=== PATIENT | female | born 1950 | race Caucasian/White ===

== ENCOUNTER 2020-08-11 08:33 | Inpatient (IN) | payer OTHER ==
[~2020-08-11] VITALS: Ht 162.6 cm; Wt 80.2 kg
[2020-08-11 09:37] LABS: Basophils # (auto) 0.1 10 ^3/uL (0-0.2); Basophils % (auto) 1.1 % (0.0-2.0); Eosinophils # (auto) 0.3 10 ^3/uL (0-0.8); Monocytes # (auto) 0.9 10 ^3/uL (0-1.3); Nucleated Red Blood Cells % 0.1 %; Red Cell Distribution Width 13.3 % (11.8-14.3)
[2020-08-11 09:38] LABS: Eosinophils % (auto) 3.2 % (0.0-7.0); Hematocrit 36.2 % (36.0-46.0); Lymphocytes # (auto) 1.7 10 ^3/uL (0.4-5.4); Lymphocytes % (auto) 16.3 % (10.0-50.0); Mean Corpuscular Hemoglobin 31.3 pg (28.0-32.0); Mean Corpuscular Hgb Conc. 35.9 g/dL (32.0-36.0); Mean Corpuscular Volume 87.1 fL (80.0-100.0); Monocytes % (auto) 8.2 % (0.0-12.0); Neutrophils # (auto) 7.6 10 ^3/uL (1.6-8.6); Neutrophils % (auto) 71.2 % (37.0-80.0); Platelet Count (auto) 470 10^3/uL (140-450); Red Blood Cells 4.16 10^6/uL (4.0-5.20); White Blood Cell 10.6 10^3/uL (4.4-10.8)
[2020-08-11 09:53] LABS: INR 1.07 (0.9-1.15); Partial Thromboplastin Time 24.5 sec (23.0-31.2)
[2020-08-11 09:54] LABS: Albumin 4.1 g/dL (3.4-5.0); Calcium 9.2 mg/dL (8.5-10.1)
[2020-08-11 09:58] LABS: Bilirubin, Total 0.6 mg/dL (0.2-1.0); Total Protein 7.9 g/dL (6.4-8.2)
[2020-08-11 10:32] LABS: Urine Bacteria FEW /hpf (None Seen); Urine Blood Negative /uL (Negative); Urine Hyaline Cast FEW /lpf (0 - 2); Urine Mucus FEW (None Seen); Urine Specific Gravity 1.033 (1.001-1.035); Urine WBC 1 /hpf (0 - 5)
[2020-08-11] MEDS ORDERED: NITROGLYCERIN 0.4 MG SL TAB SL PRN ×2 (11:15→13:00)
[2020-08-11] MEDS ORDERED: MORPHINE SULF INJ 2 MG/ML SYRINGE 1ML IV PRN ×2 (11:15→13:00)
[2020-08-11] MEDS ORDERED: SODIUM CHLORIDE 0.9% 1,000 ML IV ONE ×2 (11:30)
[2020-08-11] MEDS ORDERED: IBUP800T26 PO (11:39)
[2020-08-11] MEDS ORDERED: BACL10TA PO (11:39)
[2020-08-11] MEDS ORDERED: NALO4SPR2 (11:39)
[2020-08-11] MEDS ORDERED: DULO60CA PO (11:39)
[2020-08-11] MEDS ORDERED: PRAV20TA3 PO (11:39)
[2020-08-11] MEDS ORDERED: TIZA4CAP7 PO (11:39)
[2020-08-11] MEDS ORDERED: AMLO-496 PO (11:39)
[2020-08-11] MEDS ORDERED: ALPR1TAB7 PO (11:39)
[2020-08-11] MEDS ORDERED: BENA40TA8 PO (11:39)
[2020-08-11] MEDS ORDERED: HYDR-4072 PO (11:39)
[2020-08-11] MEDS ORDERED: ATEN-60 PO (11:39)
[2020-08-11] MEDS ORDERED: ALEN35TA18 PO (11:39)
[2020-08-11] MEDS ORDERED: METF-929 PO (11:39)
[2020-08-11] MEDS: MORPHINE SULF INJ 2 MG/ML SYRINGE 1ML IV PRN ×2 (11:56→16:31)
[2020-08-11] MEDS ORDERED: ceFAZolin 1GM/50ML 50 ML IV ONE (13:00)
[2020-08-11] MEDS ORDERED: DOCUSATE SOD 100 MG CAP PO PRN (13:00)
[2020-08-11] MEDS ORDERED: DEXTROSE (50%) 50ML SYRG IV PRN (13:00)
[2020-08-11] MEDS ORDERED: ACETAMINOPHEN 325 MG TAB PO PRN (13:00)
[2020-08-11] MEDS ORDERED: BACLOFEN 10 MG TAB PO PRN (13:00)
[2020-08-11] MEDS ORDERED: ONDANSETRON HCL 4 MG/2 ML VIAL IV PRN (13:00)
[2020-08-11] MEDS ORDERED: ALUM & MAG HYDROX-SIMETH LIQ(MAALOX) 30 ML PO PRN (13:00)
[2020-08-11] MEDS ORDERED: LORazepam 0.5 MG TAB PO PRN (13:00)
[2020-08-11] MEDS ORDERED: LISINOPRIL 20 MG TAB PO ONE (13:00)
[2020-08-11] MEDS ORDERED: METOPROLOL SUCCINATE XL 50 MG TAB PO ONE (13:00)
[2020-08-11] MEDS ORDERED: hydrALAZINE HCL 20 MG/ML VL IV PRN (13:00)
[2020-08-11] MEDS: SODIUM CHLORIDE 0.9% 1,000 ML IV SCH (13:16)
[2020-08-11 14:55] LABS: Cholesterol 125 mg/dL (< 200)
[2020-08-11 15:03] LABS: HDL Cholesterol 54 mg/dL (40-59); LDL Cholesterol 54 mg/dL (< 100); Triglycerides 103 mg/dL (< 150)
[2020-08-11] MEDS: InsuLIN REG 1unit/0.01ml Soln (100units/ml) SC SCH ×2 (16:30→22:00)
[2020-08-11] MEDS: ACCU-CHEK COMFORT CURVE STRIP VI SCH ×2 (16:30→22:05)
[2020-08-11 16:55] LABS: Amphetamine Screen, Urine NEGATIVE (NEGATIVE); Barbiturate Scree,Urine NEGATIVE (NEGATIVE); Benzodiazephine Screen, Urine POSITIVE (NEGATIVE); Cannabinoid Screen, Urine NEGATIVE (NEGATIVE); Cocaine Screen, Urine NEGATIVE (NEGATIVE); Opiate Scree,Urine POSITIVE (NEGATIVE); Phencyclidine Screen, Urine NEGATIVE (NEGATIVE)
[2020-08-11] MEDS: HYDROmorphone HCL 2 MG/ML VL IV PRN (20:46)
[2020-08-11 21:50] VITALS: BP 146/73
[2020-08-11] MEDS: ATORVASTATIN 20 MG TAB PO SCH (21:55)
[2020-08-11] MEDS ORDERED: ceFAZolin 1GM/50ML 50 ML IV SCH (22:00)
[2020-08-11] MEDS: HYDROcodone-ACET 5/325MG TAB PO PRN (22:21)
[2020-08-12] MEDS: HYDROmorphone HCL 2 MG/ML VL IV PRN ×4 (00:49→09:38)
[2020-08-12] MEDS: HYDROcodone-ACET 5/325MG TAB PO PRN ×3 (02:35→22:49)
[2020-08-12 05:30] VITALS: BP 135/79
[2020-08-12] MEDS ORDERED: LIDOCAINE 1% HCL (LOCAL ANESTH.) INJ 20ML MDV ONE (06:51)
[2020-08-12] MEDS ORDERED: BUPIVACAINE 0.25% INJ 50ML VIAL ONE (06:52)
[2020-08-12] MEDS: ACCU-CHEK COMFORT CURVE STRIP VI SCH ×3 (07:00→17:00)
[2020-08-12] MEDS: InsuLIN REG 1unit/0.01ml Soln (100units/ml) SC SCH ×4 (07:00→22:00)
[2020-08-12] MEDS ORDERED: ceFAZolin 1GM/50ML 100 ML IV ONE (07:11)
[2020-08-12] MEDS ORDERED: DexAMETHasone SOD PHOS 10MG/1ML VIAL INJ ONE (07:37)
[2020-08-12] MEDS ORDERED: LIDOCAINE 2% (LOCAL ANESTH.) PF 5ml SDV ONE (07:37)
[2020-08-12] MEDS ORDERED: ONDANSETRON HCL 4 MG/2 ML VIAL ONE (07:37)
[2020-08-12] MEDS ORDERED: PROPOFOL 10 MG/ML 20 ML IV ONE (07:38)
[2020-08-12] MEDS ORDERED: fentaNYL CITRATE 100 MCG/2 ML VL ONE (07:39)
[2020-08-12] MEDS ORDERED: KETOROLAC TROMETH 60MG/2ML VIAL ONE (08:00)
[2020-08-12] MEDS ORDERED: hydrALAZINE HCL 20 MG/ML VL IV PRN (09:15)
[2020-08-12] MEDS: LACTATED RINGER'S 1,000 ML IV SCH (09:15)
[2020-08-12] MEDS: ceFAZolin 1GM/50ML 50 ML IV SCH ×2 (09:15→15:15)
[2020-08-12] MEDS ORDERED: LABETALOL HCL 5 MG/ML 4ML SYRINGE IV PRN (09:15)
[2020-08-12] MEDS ORDERED: HYDROmorphone HCL 2 MG/ML VL IV PRN (09:15)
[2020-08-12] MEDS ORDERED: ALENDRONATE SODIUM 10 MG TAB PO SCH (10:00)
[2020-08-12 10:26] VITALS: BP 170/86
[2020-08-12] MEDS: ASPirin 81 mg TAB PO SCH (10:53)
[2020-08-12] MEDS: DULoxetine HCL 30 MG CAP PO SCH (10:54)
[2020-08-12] MEDS: METOPROLOL SUCCINATE XL 50 MG TAB PO SCH (10:54)
[2020-08-12] MEDS: LISINOPRIL 20 MG TAB PO SCH (10:55)
[2020-08-12 12:02] LABS: Eosinophils # (auto) 0 10 ^3/uL (0-0.8); Hematocrit 38.8 % (36.0-46.0); Lymphocytes # (auto) 0.8 10 ^3/uL (0.4-5.4)
[2020-08-12 12:17] LABS: Albumin 3.9 g/dL (3.4-5.0); Calcium 8.4 mg/dL (8.5-10.1); Magnesium 2.1 mg/dL (1.6-2.6); Potassium 3.5 mmol/L (3.5-5.1)
[2020-08-12 12:19] LABS: Basophils # (auto) 0.1 10 ^3/uL (0-0.2); Basophils % (auto) 0.5 % (0.0-2.0); Eosinophils % (auto) 0.2 % (0.0-7.0); Hemoglobin 13.5 g/dL (12.2-16.2); Mean Corpuscular Hemoglobin 30.7 pg (28.0-32.0); Mean Corpuscular Hgb Conc. 34.8 g/dL (32.0-36.0); Mean Corpuscular Volume 88.2 fL (80.0-100.0); Monocytes # (auto) 0.2 10 ^3/uL (0-1.3); Monocytes % (auto) 1.5 % (0.0-12.0); Neutrophils # (auto) 11.9 10 ^3/uL (1.6-8.6); Neutrophils % (auto) 91.8 % (37.0-80.0); Platelet Count (auto) 487 10^3/uL (140-450); Red Cell Distribution Width 13.2 % (11.8-14.3)
[2020-08-12 12:21] LABS: BUN/Creatinine Ratio 14.3; Bilirubin, Total 0.4 mg/dL (0.2-1.0); Phosphorus 2.9 mg/dL (2.5-4.90)
[2020-08-12 12:34] LABS: INR 1.05 (0.9-1.15); Partial Thromboplastin Time 25.8 sec (23.0-31.2)
[2020-08-12] MEDS ORDERED: SODIUM CHLOR 0.9% PF (SALINE LOCK) 10ML VIAL/SYR IV SCH (14:00)
[2020-08-12] MEDS: SODIUM CHLORIDE 0.9% 1,000 ML IV SCH (14:37)
[2020-08-12 15:42] VITALS: BP 146/84
[2020-08-12 22:00] VITALS: BP 140/73
[2020-08-12] MEDS: ATORVASTATIN 20 MG TAB PO SCH (22:28)
[2020-08-13] MEDS: HYDROcodone-ACET 5/325MG TAB PO PRN ×5 (02:40→12:45)
[2020-08-13 05:00] VITALS: BP 134/86
[2020-08-13] MEDS: LACTATED RINGER'S 1,000 ML IV SCH (05:15)
[2020-08-13] MEDS: InsuLIN REG 1unit/0.01ml Soln (100units/ml) SC SCH ×2 (07:00→11:30)
[2020-08-13 07:36] VITALS: BP 155/76
[2020-08-13] MEDS ORDERED: ENOXAPARIN SOD 40 MG/0.4 ML SYRINGE SC SCH (10:00)
[2020-08-13] MEDS: ASPirin 81 mg TAB PO SCH (10:24)
[2020-08-13] MEDS: DULoxetine HCL 30 MG CAP PO SCH (10:24)
[2020-08-13] MEDS: METOPROLOL SUCCINATE XL 50 MG TAB PO SCH (10:25)
[2020-08-13] MEDS: LISINOPRIL 20 MG TAB PO SCH (10:26)
[2020-08-13] MEDS: HYDROmorphone HCL 2 MG/ML VL IV PRN (12:43)
[2020-08-13 16:08] VITALS: BP 128/70
[2020-08-13] MEDS ORDERED: ENO40SY SC (16:44)
== END 2020-08-13 19:36 | disposition home or self-care (01) | DRG 493 ==
LOC: ER 08:33 → OVERFLOW 11:19 → TELE-WESTW 21:16
PROVIDERS: ADMIT Emergency Medicine; ATTEND Emergency Medicine
PROC: 0MQR0ZZ Repair Left Ankle Bursa and Ligament, Open Approach (ICD-10-PCS; 2020-08-12)
PROC: 0QSH04Z Reposition Left Tibia with Internal Fixation Device, Open Approach (ICD-10-PCS; 2020-08-12)
PROC: BQ1HZZZ Fluoroscopy of Left Ankle (ICD-10-PCS; 2020-08-12)
PROC: 0QSK04Z Reposition Left Fibula with Internal Fixation Device, Open Approach (ICD-10-PCS; principal; 2020-08-12 07:40)
DX: S82.852A Displaced trimalleolar fracture of left lower leg, initial encounter for closed fracture (principal); E87.1 Hypo-osmolality and hyponatremia; F11.20 Opioid dependence, uncomplicated; E78.5 Hyperlipidemia, unspecified; E11.9 Type 2 diabetes mellitus without complications; F32.9 Major depressive disorder, single episode, unspecified; F41.9 Anxiety disorder, unspecified; G89.4 Chronic pain syndrome; W18.39XA Other fall on same level, initial encounter; Z20.822 Contact with and (suspected) exposure to COVID-19; I10 Essential (primary) hypertension; M19.90 Unspecified osteoarthritis, unspecified site; M81.0 Age-related osteoporosis without current pathological fracture; Z82.49 Family history of ischemic heart disease and other diseases of the circulatory system; Z83.3 Family history of diabetes mellitus; Z90.710 Acquired absence of both cervix and uterus; Y93.89 Activity, other specified; Y92.89 Other specified places as the place of occurrence of the external cause; Y99.8 Other external cause status
CPT/HCPCS: 36415; 51702; 71045; 73600; 76001; 80053; 80061; 80307; 81001; 82962; 83036; 83735; 84100; 84484; 85025; 85610; 85730; 86850; 86900; 86901; 87040; 87086; 87426; 93005; 96361; 96365; 96375; 97163; 99291; G0378; J0690; J1100; J1815; J1885; J2001; J2405; J2704; J3490

== ENCOUNTER 2021-07-28 18:08 | Emergency (ER) | payer BC, OTHER ==
[~2021-07-28] VITALS: Ht 165.1 cm; Wt 72.6 kg
[~2021-07-28 18:08] MED LIST: ALPR1TAB7 PO; AMLO-496 PO; ATEN-60 PO; BACL10TA PO; BENA40TA8 PO; DULO60CA PO; ENO40SY SC; HYDR-4072 PO; IBUP800T26 PO; METF-929 PO; PRAV20TA3 PO; TIZA4CAP7 PO
[2021-07-28 18:14] VITALS: BP 184/82
== END 2021-07-28 22:24 | disposition home or self-care (01) ==
LOC: EDBD 18:08 → EDUNIT# 18:08 → ER 18:12
DX: S92.414A Nondisplaced fracture of proximal phalanx of right great toe, initial encounter for closed fracture (principal); S93.602A Unspecified sprain of left foot, initial encounter; S63.501A Unspecified sprain of right wrist, initial encounter; S63.502A Unspecified sprain of left wrist, initial encounter; M47.816 Spondylosis without myelopathy or radiculopathy, lumbar region; I10 Essential (primary) hypertension; E11.9 Type 2 diabetes mellitus without complications; E78.5 Hyperlipidemia, unspecified; Z90.710 Acquired absence of both cervix and uterus; Z79.1 Long term (current) use of non-steroidal anti-inflammatories (NSAID); Z79.899 Other long term (current) drug therapy; W19.XXXA Unspecified fall, initial encounter; Y93.89 Activity, other specified; Y92.89 Other specified places as the place of occurrence of the external cause; Y99.8 Other external cause status
CPT/HCPCS: 72131; 73110; 73630

== ENCOUNTER 2022-08-12 10:07 | Day surgery (SDC) | payer BC ==
[~2022-08-12] VITALS: Ht 165.1 cm; Wt 72.6 kg
[~2022-08-12 10:07] MED LIST changes: -AMLO-496 PO; -BACL10TA PO; -DULO60CA PO; -ENO40SY SC; -HYDR-4072 PO; +METF-370 PO; -METF-929 PO; +NITR0.4S29 SL; -PRAV20TA3 PO; -TIZA4CAP7 PO
[2022-08-12] MEDS ORDERED: ANGIOMAX 250 MG VIAL IV ONE (11:27)
[2022-08-12] MEDS ORDERED: MIDAZOLAM HCL 2MG/2ML 2ml VIAL (1mg/ml) ONE (11:28)
[2022-08-12] MEDS ORDERED: fentaNYL CITRATE 100 MCG/2 ML VL ONE (11:28)
[2022-08-12] MEDS ORDERED: HEPARIN SODIUM (PORCINE) 5000 UNITS/ML 1ML VIAL ONE (11:28)
[2022-08-12] MEDS ORDERED: SODIUM CHL 0.9% 0 ML ONE (11:28)
[2022-08-12] MEDS ORDERED: IOHEXOL 350 MG/ML 100ML IJ ONE (11:29)
[2022-08-12] MEDS ORDERED: VERAPAMIL 2.5MG/ML INJ 2ML VIAL IV ONE (11:31)
== END 2022-08-12 14:58 | disposition home or self-care (01) ==
LOC: CATH 10:07
PROVIDERS: ATTEND Internal Medicine
DX: I25.118 Atherosclerotic heart disease of native coronary artery with other forms of angina pectoris (principal); R94.39 Abnormal result of other cardiovascular function study; F41.9 Anxiety disorder, unspecified; Z79.1 Long term (current) use of non-steroidal anti-inflammatories (NSAID); Z79.84 Long term (current) use of oral hypoglycemic drugs; Z82.49 Family history of ischemic heart disease and other diseases of the circulatory system; Z83.3 Family history of diabetes mellitus; Z20.822 Contact with and (suspected) exposure to COVID-19; I10 Essential (primary) hypertension
CPT/HCPCS: 93458; C1769; C1887; C1894; J1644; J2250; J3010; J7030; Q9967; U0003; 99152; 99153

== ENCOUNTER 2023-02-12 17:43 | Inpatient (IN) | payer BC ==
[~2023-02-12] VITALS: Ht 170.2 cm; Wt 84.1 kg
[~2023-02-12 17:43] MED LIST changes: +BENA40TA70 PO; -BENA40TA8 PO; +IBUP-1455 PO; -IBUP800T26 PO
[2023-02-12 18:42] VITALS: O2SAT 97
[2023-02-12 19:28] LABS: Basophils # (auto) 0 10 ^3/uL (0-0.2); Basophils % (auto) 0.3 % (0.0-2.0); Eosinophils # (auto) 0.1 10 ^3/uL (0-0.8); Eosinophils % (auto) 0.6 % (0.0-7.0); Hematocrit 41.7 % (36.0-46.0); Hemoglobin 13.7 g/dL (12.2-16.2); Lymphocytes # (auto) 1.2 10 ^3/uL (0.4-5.4); Lymphocytes % (auto) 9.4 % (10.0-50.0); Mean Corpuscular Hemoglobin 30.1 pg (28.0-32.0); Mean Corpuscular Hgb Conc. 32.9 g/dL (32.0-36.0); Mean Corpuscular Volume 91.3 fL (80.0-100.0); Monocytes # (auto) 0.9 10 ^3/uL (0-1.3); Neutrophils % (auto) 82.7 % (37.0-80.0); Red Blood Cells 4.57 10^6/uL (4.0-5.20); Red Cell Distribution Width 13.5 % (11.8-14.3); White Blood Cell 13.3 10^3/uL (4.4-10.8)
[2023-02-12 19:38] LABS: Urine Bacteria FEW /hpf (None Seen); Urine Blood Negative /uL (Negative); Urine Hyaline Cast MOD /lpf (0 - 2); Urine Mucus FEW (None Seen); Urine Specific Gravity 1.024 (1.001-1.035); Urine WBC 14 /hpf (0 - 5); Urine WBC Clumps PRESENT /hpf (None Seen)
[2023-02-12 19:48] LABS: INR 1.04 (0.9-1.15); Partial Thromboplastin Time 24.2 SEC (24.5-34.5)
[2023-02-12 19:50] LABS: Albumin 4.9 g/dL (3.4-5.0); BUN/Creatinine Ratio 12.7 (10.0-20.0); Calcium 9.6 mg/dL (8.5-10.1); Magnesium 2.6 mg/dL (1.6-2.6); Potassium 3.7 mmol/L (3.5-5.1)
[2023-02-12 19:50] LABS: Amphetamine Screen, Urine NEGATIVE (NEGATIVE); Barbiturate Scree,Urine NEGATIVE (NEGATIVE); Benzodiazephine Screen, Urine POSITIVE (NEGATIVE); Cannabinoid Screen, Urine NEGATIVE (NEGATIVE); Cocaine Screen, Urine NEGATIVE (NEGATIVE); Phencyclidine Screen, Urine NEGATIVE (NEGATIVE)
[2023-02-12 19:52] LABS: Bilirubin, Total 0.4 mg/dL (0.2-1.0); Total Protein 7.7 g/dL (6.4-8.2)
[2023-02-12 19:58] LABS: Opiate Scree,Urine POSITIVE (NEGATIVE)
[2023-02-12 21:04] VITALS: PULSE 81; RESP 13; O2SAT 97
[2023-02-12] MEDS ORDERED: cefTRIAXone 1GM/50ML D5W 50 ML IV ONE (22:15)
[2023-02-12] MEDS ORDERED: ONDANSETRON HCL 4 MG/2 ML VIAL IV PRN (22:15)
[2023-02-12] MEDS ORDERED: DEXTROSE (50%) 50ML SYRG IV PRN (22:15)
[2023-02-12] MEDS ORDERED: MORPHINE SULFATE INJ 2 MG/ml SYRG IV PRN (22:15)
[2023-02-12] MEDS ORDERED: NITROGLYCERIN 0.4 MG SL TAB SL PRN (22:15)
[2023-02-12] MEDS ORDERED: ACETAMINOPHEN 325 MG TAB PO PRN (22:15)
[2023-02-13 06:11] LABS: Basophils # (auto) 0 10 ^3/uL (0-0.2); Basophils % (auto) 0.3 % (0.0-2.0); Eosinophils # (auto) 0 10 ^3/uL (0-0.8); Eosinophils % (auto) 0.1 % (0.0-7.0); Hematocrit 41.3 % (36.0-46.0); Hemoglobin 14.2 g/dL (12.2-16.2); Lymphocytes # (auto) 1.3 10 ^3/uL (0.4-5.4); Lymphocytes % (auto) 11.3 % (10.0-50.0); Mean Corpuscular Hemoglobin 30.9 pg (28.0-32.0); Mean Corpuscular Hgb Conc. 34.3 g/dL (32.0-36.0); Mean Corpuscular Volume 90.1 fL (80.0-100.0); Monocytes # (auto) 0.8 10 ^3/uL (0-1.3); Monocytes % (auto) 6.5 % (0.0-12.0); Neutrophils # (auto) 9.4 10 ^3/uL (1.6-8.6); Neutrophils % (auto) 81.8 % (37.0-80.0); Nucleated Red Blood Cells % 0.1 %; Red Blood Cells 4.59 10^6/uL (4.0-5.20); Red Cell Distribution Width 13.3 % (11.8-14.3); White Blood Cell 11.5 10^3/uL (4.4-10.8)
[2023-02-13 06:29] LABS: Potassium 3.9 mmol/L (3.5-5.1)
[2023-02-13 06:36] LABS: Albumin 4.6 g/dL (3.4-5.0); BUN/Creatinine Ratio 23.4 (10.0-20.0); Bilirubin, Total 0.5 mg/dL (0.2-1.0); Total Protein 8.3 g/dL (6.4-8.2)
[2023-02-13] MEDS: ACCU-CHEK COMFORT CURVE STRIP VI SCH ×3 (06:40→16:51)
[2023-02-13] MEDS: InsuLIN REG 1unit/0.01ml Soln (100units/ml) SC SCH ×3 (06:40→17:13)
[2023-02-13 09:11] VITALS: PULSE 72; RESP 16; O2SAT 97
[2023-02-13] MEDS ORDERED: ATENOLOL 25 MG TAB PO SCH (10:00)
[2023-02-13] MEDS ORDERED: PANTOPRAZOLE 40 MG TAB PO SCH (10:00)
[2023-02-13 17:00] VITALS: TEMP 98.3
[2023-02-13] MEDS ORDERED: CEPH250C PO (17:37)
[2023-02-13 18:19] VITALS: BP 148/74; PULSE 66; RESP 16; O2SAT 99
[2023-02-13] MEDS ORDERED: cefTRIAXone 1GM/50ML D5W 50 ML IV SCH (22:00)
== END 2023-02-13 19:00 | disposition home or self-care (01) | DRG 92 ==
LOC: ER 17:43 → TELE 22:19
PROVIDERS: ADMIT Internal Medicine; ATTEND Internal Medicine
DX: G92.8 Other toxic encephalopathy (principal); N39.0 Urinary tract infection, site not specified; I10 Essential (primary) hypertension; E11.9 Type 2 diabetes mellitus without complications; E78.5 Hyperlipidemia, unspecified; F41.9 Anxiety disorder, unspecified; G89.4 Chronic pain syndrome; M19.90 Unspecified osteoarthritis, unspecified site; Z90.710 Acquired absence of both cervix and uterus; Z83.3 Family history of diabetes mellitus
CPT/HCPCS: 36415; 70450; 71045; 80053; 80307; 81001; 82962; 83735; 83880; 84484; 85025; 85610; 85730; 87086; 93005; 96365; 96366; 96372; 97163; G0378; J0696; J1815

== ENCOUNTER 2024-11-26 23:25 | Emergency (ER) | payer BC ==
[~2024-11-26] VITALS: Ht 165.1 cm; Wt 150.0 kg
[~2024-11-26 23:25] MED LIST changes: -BENA40TA70 PO; +BENA40TA71 PO; +CEPH250C PO
--- NOTE | 2024-11-27 00:06 | ED.PDOC ---
GI ASSESSMENT HPI Comments 74-year-old female who came to ER via EMS for nausea and vomiting. Patient states she woke up this morning, with diffuse abdominal pain, intermittent, aching, nonradiating, associated with bouts of nausea and vomiting. Noted also single episode of diarrhea. Denies any urinary symptoms Chief Complaint: Nausea/Vomiting Time Seen by MD: 23:59 Primary Care Provider: PRITI Reviewed Notes: Nurses Notes Allergies: Coded Allergies: NO KNOWN ALLERGIES (Unverified , 08/09/22) Home Meds Active Scripts Ondansetron Odt 4MG Tab (ZOFRAN PO) 4 Mg Tb, 4 MG PO TIDPRN PRN for 3 Days, #9 TAB ODT TAB-DISSOLVE IN MOUTH, THEN SWALLOW Prov:NBA TAYLOR MD 11/27/24 Levofloxacin Hemihydrate (LEVAQUIN 500 MG) 500 Mg Tab, 500 MG PO DAILY for 7 Days, #7 TAB Prov:NBA TAYLOR MD 11/27/24 Metronidazole (Flagyl) 500 Mg Tab, 500 MG PO BID for 7 Days, #14 TAB Prov:NBA TAYLOR MD 11/27/24 Cephalexin (KEFLEX CAPSULE) 250 Mg Cp, 500 MG PO Q6HR, #28 CAP Prov:ALEXANDRA REDDY MD 02/13/23 Reported Medications Nitroglycerin (NTROSTAT SUBLINGUAL) 0.4 Mg Sl, 0.4 MG SL PRN for CHEST PAIN, TAB *MAY REPEAT EVERY 5 MINUTES X 3 TOTAL IF NO RELIEF, INITIATE ANALGESIC THERAPY. NOTIFY PHYSICIAN *Do not crush. 08/09/22 Metformin Hydrochloride (Metformin Hcl) 500 Mg Tab, 500 MG PO IBID for ON HOLD 08/11/22 for 30 Days, MG 08/09/22 Benazepril Hcl (Benazepril Hcl) 40 Mg Tab, 40 MG PO DAILY, MG 08/11/20 Atenolol (Atenolol) 25 Mg Tab, 25 MG PO DAILY, MG 08/11/20 Alprazolam (Alprazolam) 1 Mg Tab, 1 TAB PO DAILY, #60 TAB 08/11/20 Ibuprofen Micronized (Ibuprofen) 800 Mg Tab, 800 MG PO TIDP, TAB 08/11/20 Discontinued Scripts Metronidazole (Flagyl) 500 Mg Tab, 1 TAB PO TID, #30 TAB Prov:NBA TAYLOR MD 11/27/24 Information Source: Patient, Emergency Med Personnel Mode of Arrival: EMS Timing: Hours Duration: Intermittent Prehospital treatment: None Quality: Aching Vomitus: Coffee Grounds Stool: Normal Severity: Moderate Recent: Iron Supplements Recent Hx of: Diabetes Pain Location: Diffuse, Epigastric Modifying Factors: Antacids Associated sign and symptoms: Nausea, Diarrhea, Constipation, Hematochezia Review of Systems REVIEW OF SYSTEMS: No fever, no chills, or fatigue HEENT: No sore throat, no earache, no congestion, no neck pain. Cardiac: No chest pain. No palpitations. Lungs: No shortness of breath, no cough. GI: (+) nausea, (+) vomiting, no diarrhea, no constipation, (+) abdominal pain : No dysuria, frequency, or urgency. No hematuria. Musculoskeletal: No joint pain , no joint swelling, no extremity edema. Skin: No rash, no itching. Neuro: No headache, no dizziness, no weakness Vital Signs Vital Signs Date Time Temp Pulse Resp B/P (MAP) Pulse Ox O2 Delivery O2 Flow Rate FiO2 11/27/24 05:45 85 18 165/72 (103) 99 11/27/24 04:35 Room Air* 0 21 11/27/24 03:15 98.6 98.6 Physical Exam General: Awake, alert and oriented. No acute distress. Skin: Skin in warm, dry and intact. Appropriate color for ethnicity. Nailbeds pink with no cyanosis. HEENT: The head is normocephalic and atraumatic. Conjunctivae are clear without exudates or hemorrhage. Sclera is non-icteric. EOM are intact. No signs of nystagmus. Eyelids are normal in appearance without swelling or lesions. Oral mucosa is pink and moist Neck: The neck is supple with normal range of motion. No JVD. Cardiac: Heart rate and rhythm are normal. No murmurs, gallops, or rubs are auscultated. Respiratory: No signs of respiratory distress. Lung sounds are clear in all lobes bilaterally without rales, rhonchi, or wheezes. Abdominal: Abdomen is soft, generally-tender without distention, guarding or rigidity. Bowel sounds are present and normoactive in all four quadrants. Extremities: Upper and lower extremities are atraumatic in appearance without deformity or edema. Neurological: The patient is awake, alert and oriented to person, place, and time with normal speech. Speech is clear. There is no facial asymmetry. Psychiatric: Appropriate mood and affect. Good judgement and insight. No visual or auditory hallucinations. Past Medical History PAST MEDICAL HISTORY: Arthritis, DM, High Lipids, HTN Surgical History: BTL, Hysterectomy [employer] OPERATIONS SPECIALIST History: No Pertinent [employer]IT[employer] OPERATIONS SPECIALIST History Family History Family History: Family hx of DM Social History Smoker: Non-Smoker Alcohol: Denies ETOH Use Drugs: Denies Drug Use Lives In: Home Was a procedure done? Was a procedure done?: No GI differential Dx Differential Diagnosis: AAA, Gastroenteritis, Dehydration, Electrolyte Imbalance, Food Poisoning, Other (Differential diagnoses considered include: Abdominal aortic aneurysm, MS, esophageal rupture, intestinal obstruction, mesenteric ischemia, perforated viscus or solid organ rupture, CHF with hepatomegaly, pneumonia, abscess, appendicitis, biliary disease, diverticulitis, gastritis, gastroenteritis, hepatitis, hernia, inflammatory bowel disease, pancreatitis, peptic ulcer disease, urinary tract infection, ureteral colic, constipation, GERD, irritable syndrome, abdominal wall pain, nonspecific abdominal pain, herpes zoster.) X-Ray, Labs, Meds, VS Vital Signs Date Time Temp Pulse Resp B/P (MAP) Pulse Ox O2 Delivery O2 Flow Rate FiO2 11/27/24 05:45 85 18 165/72 (103) 99 11/27/24 04:35 Room Air* 0 21 11/27/24 03:15 98.6 85 16 145/70 (95) 99 98.6 11/27/24 02:03 85 16 145/70 11/27/24 01:35 Room Air* 0 21 11/27/24 01:33 109 17 130/73 11/27/24 00:47 97.9 109 24 130/73 (92) 98 97.9 11/26/24 23:25 98.7 79 15 170/68 (102) 97 98.7 Lab Test 11/27/24 05:33 11/27/24 03:52 11/26/24 23:50 Range/Units Sodium Level 137 136 136-145 mmol/L Potassium Level 3.2 L 3.9 3.5-5.1 mmol/L Chloride Level 100 97 L 98-107 mmol/L Carbon Dioxide Level 18 L 17 L 20-31 mmol/L Anion Gap 19 H 22 H 5-15 Blood Urea Nitrogen 18 15 9-23 mg/dL Creatinine 1.16 H 1.04 H 0.550-1.02 mg/dL Glomerular Filtration Rate Calc 49 56 >90 mL/min BUN/Creatinine Ratio 15.5 14.4 10.0-20.0 Serum Glucose 182 H 202 H 74-106 mg/dL Calcium Level 10.4 10.7 H 8.7-10.4 mg/dL Blood Gas Specimen Type Arterial Blood Gas Sample Site Right radial Blood Gas Patient Temperature 37.0 Arterial Blood Date Drawn [id number] Arterial Blood pH 7.518 H 7.350-7.450 Arterial Blood Partial Pressure CO2 17.6 *L 32.0-45.0 mmHg Arterial Blood Partial Pressure O2 86.1 83.0-108.0 mmHg Arterial Blood HCO3 14.0 L 21.0-28.0 mmol/L Arterial Blood Oxygen Saturation 96.7 94.0-98.0 % Arterial Blood Base Excess -6.1 L -2.0-3.0 mmol/L Arterial Blood Oxyhemoglobin 95.9 94.0-98.0 % Arterial Blood Carboxyhemoglobin 0.2 L 0.5-1.5 % Arterial Blood Methemoglobin 0.6 0.0-1.5 % Jesús Test Yes Blood Gas Total Hemoglobin 14.00 12.0-16.0 g/dL Blood Gas Modality Room air FiO2 % 21.0 Blood Gas Critical Value Read Back Yes Blood Gas Notified Whom Dr. taylor Blood Gas Notified Time [id number] Blood Gas Notified By Schedule Maker gaston helm White Blood Count 18.1 H 4.4-10.8 10^3/uL Red Blood Count 4.84 4.0-5.20 10^6/uL Hemoglobin 14.5 12.2-16.2 g/dL Hematocrit 43.2 36.0-46.0 % Mean Corpuscular Volume 89.1 80.0-100.0 fL Mean Corpuscular Hemoglobin 30.0 28.0-32.0 pg Mean Corpuscular Hemoglobin Concent 33.7 32.0-36.0 g/dL Red Cell Distribution Width 13.8 11.8-14.3 % Platelet Count 435 140-450 10^3/uL Mean Platelet Volume 7.6 6.9-10.8 fL Neutrophils (%) (Auto) 91.0 H 37.0-80.0 % Lymphocytes (%) (Auto) 5.5 L 10.0-50.0 % Monocytes (%) (Auto) 3.3 0.0-12.0 % Eosinophils (%) (Auto) 0.0 0.0-7.0 % Basophils (%) (Auto) 0.2 0.0-2.0 % Neutrophils # (Auto) 16.5 H 1.6-8.6 10 ^3/uL Lymphocytes # (Auto) 1.0 0.4-5.4 10 ^3/uL Monocytes # (Auto) 0.6 0-1.3 10 ^3/uL Eosinophils # (Auto) 0 0-0.8 10 ^3/uL Basophils # (Auto) 0 0-0.2 10 ^3/uL Nucleated Red Blood Cells 0.0 % Lipase 54 H 12-53 U/L Current Medications Medications (Trade) Dose Ordered Sig/Jose Angel Route Start Time Stop Time Status Last Admin Sodium Chloride 500 ml @ 500 mls/hr Q1H ONCE IV 11/26/24 23:45 11/27/24 00:44 DC 11/27/24 01:30 Morphine Sulfate 2 mg ONCE ONCE IV 11/26/24 23:45 11/26/24 23:47 DC 11/27/24 01:33 Sodium Chloride 1,000 ml @ 1,000 mls/hr Q1H ONCE IV 11/27/24 01:30 11/27/24 02:29 DC 11/27/24 01:39 Ceftriaxone Sodium 50 ml @ 100 mls/hr ONCE ONCE IV 11/27/24 01:30 11/27/24 01:59 DC 11/27/24 01:43 Metronidazole 100 ml @ 100 mls/hr ONCE ONCE IV 11/27/24 01:30 11/27/24 02:29 DC 11/27/24 01:43 PATIENT: CARLTON JARVIS ACCT: [id number] UNIT: [id number] : 1950 LOC: ER ROOM / BED: / AGE / SEX: 74 / F ADM STATUS: REG ER SERVICE 2089 ORDERING PHYSICIAN: NBA TAYLOR MD PROCEDURE(s): ABPL - CT AB PEL WO CON-NO ORAL OR IV REASON: abdominal pain /n/v/d ORDER NUMBER(s): [id number], ACCESSION NUMBER(s): [id number] Exam: CT CT AB PEL WO CON-NO ORAL OR IV History: abdominal pain /n/v/d Comparison Study: None Technique: Multidetector spiral CT of the abdomen was performed from lung bases to pubic symphysis. Imaging was performed without IV contrast. Axial, coronal and sagittal multiplanar reformats were obtained from the axial data set by the technologist. Radiation Dose : 1. Abdomen/Pelvis: CTDIvol mGy, DLP mGy*cm. Findings: Evaluation of solid organs is limited due to lack of intravenous contrast use. Lung Bases: No abnormality demonstrated. Liver: Liver is normal in size. No focal lesions noted. Gallbladder and Biliary Tree: No abnormality demonstrated. Spleen: No abnormality demonstrated. Pancreas: No abnormality demonstrated. Adrenal Glands: No abnormality demonstrated. Kidneys: No abnormality demonstrated. Bladder: Grossly unremarkable for degree of distention. Bowel: Stomach appears grossly unremarkable. The duodenum is mildly dilated measuring measuring 3.3 cm with thickened wall. The more distal small bowel and the large bowel appear unremarkable. Appendix is not visualized; however, no secondary findings of acute appendicitis identified. Ascites: Absent Lymphadenopathy: No evidence of lymphadenopathy. Abdominal Wall and Mesentery: Unremarkable. Vasculature: Mild plaque in abdominal aorta and iliac arteries without aneurysmal dilatation. Pelvic Organs: Unremarkable Musculoskeletal: No bony lesions or fracture. IMPRESSION: Duodenum is mildly dilated measuring measuring 3.3 cm with thickened wall, may represent duodenitis. Radiation optimization: All CT scans at this facility use at least one of these dose optimization techniques: automated exposure control mA and/or kV adjustment per patient size (includes targeted exams where dose is matched to clinical indication) or iterative reconstruction. ATED BY: ELVIS JOHNSON MD DICTATED DATE/TIME: 11/27/2458 SIGNED BY: ELVIS JOHNSON MD SIGNED DATE/TIME: 11/27/2458 CC: Time of 1ST Reevaluation: 23:56 Reevaluation 1ST: Unchanged Patient Education/Counseling: Need For Follow Up Family Education/Counseling: No Family Present Departure 1 Departure Time of Disposition: :23 Impression: Primary Impression: Abdominal pain Additional Impressions: Hyperglycemia Leukocytosis Disposition: 01 HOME / SELF CARE / HOMELESS Condition: Stable Additional Instructions: ED DISCHARGE INSTRUCTIONS Instructions: Please read all instructions provided in this packet carefully. Although you have been discharged from the Emergency Department, this does not mean that you have a "clean bill of health". No definitive diagnosis for your symptoms has been made today. It is possible that you are in the process of developing a serious illness. This is why you must return to the ED without fail if any new or worsening symptoms (especially if your symptoms include chest pain, trouble breathing, abdominal pain, fever, headache, confusion, trouble seeing, or trouble walking) It is also very important that you see a primary care doctor within the next 1-3 days to follow up. If you are unable to get an appointment, return to the ED for re-evaluation. Abdominal Pain: Care Instructions Overview Abdominal pain has many possible causes. Some aren't serious and get better on their own in a few days. Others need more testing and treatment. If your pain continues or gets worse, you need to be rechecked and may need more tests to find out what is wrong. You may need surgery to correct the problem. Don't ignore new symptoms, such as fever, nausea and vomiting, urination problems, pain that gets worse, and dizziness. These may be signs of a more serious problem. If you are not getting better, you may need more tests or treatment. The doctor has checked you carefully, but problems can develop later. If you notice any problems or new symptoms, get medical treatment right away. Follow-up care is a pepe part of your treatment and safety. Be sure to make and go to all appointments, and call your doctor if you are having problems. It's also a good idea to know your test results and keep a list of the medicines you take. How can you care for yourself at home? Rest until you feel better. To prevent dehydration, drink plenty of fluids. Choose water and other clear liquids until you feel better. If you have kidney, heart, or liver disease and have to limit fluids, talk with your doctor before you increase the amount of fluids you drink. When you feel like eating, start with small amounts. Do not have alcohol, caffeine, or spicy, hot, or high-fat foods for a day or two. Avoid anti-inflammatory medicines such as aspirin, ibuprofen (Advil, Motrin), and naproxen (Aleve). These can cause stomach upset. Talk to your doctor if you take daily aspirin for another health problem. When should you call for help? Call 911 anytime you think you may need emergency care. For example, call if: You passed out (lost consciousness). You pass maroon or very bloody stools. You vomit blood or what looks like coffee grounds. You have severe belly pain. Call your doctor now or seek immediate medical care if: Your pain gets worse, especially if it becomes focused in one area of your belly. You have a new or higher fever. Your stools are black and look like tar, or they have streaks of blood. You have unexpected vaginal bleeding. You have symptoms of a urinary tract infection. These may include: Pain when you urinate. Urinating more often than usual. Blood in your urine. You are dizzy or lightheaded, or you feel like you may faint. Watch closely for changes in your health, and be sure to contact your doctor if: You are not getting better as expected. Credits for Abdominal Pain: Care Instructions Current as of: May 08, 2023 Author: [employer] Staff Clinical Review Board [employer] education is reviewed by a team that includes physicians, nurses, advanced practitioners, registered dieticians, and other healthcare professionals. e-Prescriptions Ondansetron Odt 4MG Tab (ZOFRAN PO) 4 Mg Tb 4 MG PO TIDPRN PRN for 3 Days, #9 TAB ODT TAB-DISSOLVE IN MOUTH, THEN SWALLOW Prov: NBA TAYLOR MD 11/27/24 Levofloxacin Hemihydrate (LEVAQUIN 500 MG) 500 Mg Tab 500 MG PO DAILY for 7 Days, #7 TAB Prov: NBA TAYLOR MD 11/27/24 Metronidazole (Flagyl) 500 Mg Tab 500 MG PO BID for 7 Days, #14 TAB Prov: NBA TAYLOR MD 11/27/24 Comments Discussed with Ileana Rob NP request for admission for nausea, vomiting, diarrhea, abdominal pain, hyperglycemia, leukocytosis, possible duodenitis, met abolic alkalosis. She evaluated the patient in the emergency department. At this time her recommendation is discharge home with oral antibiotics with outpatient follow up. Patient is reporting her pain is improved. Abdominal exam is benign. Advised p rompt follow up with primary care provider for re-evaluation and return to the emergency department with any new, worsening or concerning symptoms Critical Care Note Critical Care Time?: No Stability Stability form required: No Heart Score Heart Score: Heart Score Response (Comments) Value History N/A 0 EKG N/A 0 Age N/A 0 Risk Factors N/A 0 Troponin N/A 0 Total 0 I personally scribed for NBA TAYLOR MD ([email or web address]) on 11/27/24 at 00:06. Electronically submitted by Ross Schmidt ([employer]). I personally scribed for NBA TAYLOR MD ([email or web address]) on 11/27/24 at 00:08. Electronically submitted by Ross Schmidt ([employer]). I personally scribed for NBA TAYLOR MD ([email or web address]) on 11/27/24 at 01:34. Electronically submitted by Ross Schmidt ([email or web address]). I personally scribed for NBA TAYLOR MD ([email or web address]) on 11/27/24 at 05:19. Electronically submitted by Ross Schmidt ([employer]). NBA TAYLOR MD November 27, 2024 00:06
[2024-11-27 00:10] LABS: Basophils # (auto) 0 10 ^3/uL (0-0.2); Basophils % (auto) 0.2 % (0.0-2.0); Eosinophils # (auto) 0 10 ^3/uL (0-0.8); Hematocrit 43.2 % (36.0-46.0); Hemoglobin 14.5 g/dL (12.2-16.2); Lymphocytes % (auto) 5.5 % (10.0-50.0); Mean Corpuscular Hgb Conc. 33.7 g/dL (32.0-36.0); Mean Corpuscular Volume 89.1 fL (80.0-100.0); Monocytes # (auto) 0.6 10 ^3/uL (0-1.3); Monocytes % (auto) 3.3 % (0.0-12.0); Neutrophils # (auto) 16.5 10 ^3/uL (1.6-8.6); Platelet Count (auto) 435 10^3/uL (140-450); Red Blood Cells 4.84 10^6/uL (4.0-5.20); Red Cell Distribution Width 13.8 % (11.8-14.3); White Blood Cell 18.1 10^3/uL (4.4-10.8)
[2024-11-27 00:13] LABS: Potassium 3.9 mmol/L (3.5-5.1)
[2024-11-27 00:14] LABS: Anion Gap 22 (5-15)
[2024-11-27 00:16] LABS: Calcium 10.7 mg/dL (8.7-10.4); Carbon Dioxide 17 mmol/L (20-31); Chloride 97 mmol/L (98-107); Sodium 136 mmol/L (136-145)
[2024-11-27 00:19] LABS: BUN/Creatinine Ratio 14.4 (10.0-20.0); Blood Urea Nitrogen 15 mg/dL (9-23)
[2024-11-27 00:29] LABS: Glucose 202 mg/dL (74-106); Lipase 54 U/L (12-53)
--- NOTE | 2024-11-27 01:02 | DVH ---
Exam: CT CT AB PEL WO CON-NO ORAL OR IV History: abdominal pain /n/v/d Comparison Study: None Technique: Multidetector spiral CT of the abdomen was performed from lung bases to pubic symphysis. Imaging was performed without IV contrast. Axial, coronal and sagittal multiplanar reformats were ob tained from the axial data set by the technologist. Radiation Dose : 1. Abdomen/Pelvis: CTDIvol mGy, DLP mGy*cm. Findings: Evaluation of solid organs is limited due to lack of intravenous contrast use. Lung Bases: No abnormality demonstrated. Liver: Liver is normal in size. No focal lesions noted. Gallbladder and Biliary Tree: No abnormality demonstrated. Spleen: No abnormality demonstrated. Pancreas: No abnormality demonstrated. Adrenal Glands: No abnormality demonstrated. Kidneys: No abnormality demonstrated. Bladder: Grossly unremarkable for degree of distention. Bowel: Stomach appears grossly unremarkable. The duodenum is mildly dilated measuring measuring 3.3 c m with thickened wall. The more distal small bowel and the large bowel appear unremarkable. Appendix is not visualized; however, no secondary findings of acute appendicitis identified. Ascites: Absent Lymphadenopathy: No evidence of lymphadenopathy. Abdominal Wall and Mesentery: Unremarkable. Vasculature: Mild plaque in abdominal aorta and iliac arteries without aneurysmal dilatation. Pelvic Organs: Unremarkable Musculoskeletal: No bony lesions or fracture. IMPRESSION: Duodenum is mildly dilated measuring measuring 3.3 cm with thickened wall, may represent duodenitis. Radiation optimization: All CT scans at this facility use at least one of these dose optimization [id number] hniques: automated exposure control mA and/or kV adjustment per patient size (includes targeted exam s where dose is matched to clinical indication) or iterative reconstruction.
[2024-11-27] MEDS: ACETAMINOPHEN 500 MG TAB or CAP PO ONE (01:30)
[2024-11-27] MEDS: SODIUM CHLORIDE 0.9% 500 ML IV ONE (01:30)
[2024-11-27] MEDS: MORPHINE SULFATE INJ 2 MG/ml SYRG IV ONE (01:33)
[2024-11-27] MEDS: SODIUM CHLORIDE 0.9% 1,000 ML IV ONE (01:39)
[2024-11-27] MEDS: metroNIDAZOLE 500MG/100ML 100 ML IV ONE (01:43)
[2024-11-27] MEDS: cefTRIAXone 1GM/50ML D5W 50 ML IV ONE (01:43)
[2024-11-27 03:15] VITALS: TEMP 98.6
[2024-11-27 04:00] LABS: Base Excess -6.1 mmol/L (-2.0-3.0)
[2024-11-27] MEDS ORDERED: LEVO500T91 PO (05:26)
[2024-11-27] MEDS ORDERED: ZOFR4T PO (05:26)
[2024-11-27] MEDS ORDERED: METR-344 PO ×2 (05:26)
[2024-11-27 05:45] VITALS: BP 165/72; PULSE 85; RESP 18; O2SAT 99
[2024-11-27 05:51] LABS: Chloride 100 mmol/L (98-107); Sodium 137 mmol/L (136-145)
[2024-11-27 05:52] LABS: Anion Gap 19 (5-15)
[2024-11-27 05:57] LABS: BUN/Creatinine Ratio 15.5 (10.0-20.0); Blood Urea Nitrogen 18 mg/dL (9-23)
[2024-11-27 06:06] LABS: Calcium 10.4 mg/dL (8.7-10.4); Carbon Dioxide 18 mmol/L (20-31); Glucose 182 mg/dL (74-106); Potassium 3.2 mmol/L (3.5-5.1)
== END 2024-11-27 07:14 | disposition home or self-care (01) ==
LOC: EDBD 23:25 → EDUNIT# 23:25 → ER 23:25
DX: D72.829 Elevated white blood cell count, unspecified (principal); R10.84 Generalized abdominal pain; R19.7 Diarrhea, unspecified; R11.2 Nausea with vomiting, unspecified; I10 Essential (primary) hypertension; M19.90 Unspecified osteoarthritis, unspecified site; E78.5 Hyperlipidemia, unspecified; E11.65 Type 2 diabetes mellitus with hyperglycemia; Z90.710 Acquired absence of both cervix and uterus; Z98.51 Tubal ligation status
CPT/HCPCS: 36415; 36600; 74176; 80048; 82805; 83690; 85025; 96365; 96368; 96375; 99285; J0696; J2270; J3490

== ENCOUNTER 2024-12-04 21:24 | Inpatient (IN) | payer BC ==
[~2024-12-04] VITALS: Ht 162.6 cm; Wt 81.8 kg
[~2024-12-04 21:24] MED LIST changes: +LEVO500T91 PO; +METR-344 PO; +ZOFR4T PO
[2024-12-04 22:00] VITALS: PULSE 78; O2SAT 96
[2024-12-04 22:01] LABS: Basophils # (auto) 0 10 ^3/uL (0-0.2); Basophils % (auto) 0.6 % (0.0-2.0); Eosinophils # (auto) 0.2 10 ^3/uL (0-0.8); Eosinophils % (auto) 2.5 % (0.0-7.0); Hematocrit 39.1 % (36.0-46.0); Hemoglobin 13.3 g/dL (12.2-16.2); Lymphocytes # (auto) 0.8 10 ^3/uL (0.4-5.4); Lymphocytes % (auto) 10.7 % (10.0-50.0); Mean Corpuscular Volume 88.2 fL (80.0-100.0); Monocytes # (auto) 1.2 10 ^3/uL (0-1.3); Monocytes % (auto) 15.9 % (0.0-12.0); Neutrophils # (auto) 5.5 10 ^3/uL (1.6-8.6); Neutrophils % (auto) 70.3 % (37.0-80.0); Nucleated Red Blood Cells % 0.1 %; Platelet Count (auto) 296 10^3/uL (140-450); Red Blood Cells 4.43 10^6/uL (4.0-5.20); Red Cell Distribution Width 14.3 % (11.8-14.3); White Blood Cell 7.8 10^3/uL (4.4-10.8)
[2024-12-04] MEDS: ONDANSETRON HCL 4 MG/2 ML VIAL IV ONE (22:01)
[2024-12-04] MEDS: MORPHINE SULFATE 4 MG/ML SYR/VIAL IV ONE (22:01)
[2024-12-04] MEDS: CEFEPIME 1GM/ 50ML 50 ML IV ONE (22:01)
[2024-12-04] MEDS: SODIUM CHLORIDE 0.9% 2,000 ML IV ONE (22:02)
[2024-12-04 22:16] LABS: Alanine Aminotransferase 15 U/L (7-40); Alkaline Phosphatase 56 U/L (46-116); Anion Gap 18 (5-15); Aspartate Aminotransferase 19 U/L (13-40); BUN/Creatinine Ratio 8.9 (10.0-20.0); Blood Urea Nitrogen 10 mg/dL (9-23); Calcium 9.4 mg/dL (8.7-10.4); Carbon Dioxide 20 mmol/L (20-31); Chloride 101 mmol/L (98-107); Lipase 52 U/L (12-53); Sodium 139 mmol/L (136-145); Total Protein 7.1 g/dL (5.7-8.2)
[2024-12-04 22:17] LABS: Albumin 4.9 g/dL (3.2-4.8); Bilirubin, Total 0.4 mg/dL (0.2-1.0); Glucose 122 mg/dL (74-106); Lactic Acid w/Reflex 3.8 mmol/L (0.4-2.0); Potassium 3.2 mmol/L (3.5-5.1)
[2024-12-04] MEDS: SODIUM CHLORIDE 0.9% 1,000 ML IV ONE (22:30)
--- NOTE | 2024-12-04 22:37 | ED.PDOC ---
GI ASSESSMENT HPI Comments 74-year-old female with a history of hypertension, diabetes, dyslipidemia and osteoarthritis brought in by EMS from home complaining of persistent nausea, vomiting and diarrhea since 11/26/2024. Patient was seen here on 11/26/2024 for the same symptoms. Workup then showed leukocytosis, and CT showed possible duodenitis. Patient was discharged from the ED on Zofran, Levaquin and Flagyl. Patient states she has not been able to keep the medication down without vomiting since being discharged. She also has persistent mid abdominal pain. She denies any fever or dysuria. Chief Complaint: Nausea/Vomiting Time Seen by MD: 21:27 Primary Care Provider: PRITI Reviewed Notes: Nurses Notes, Engineering Manager Electronics Notes Allergies: Coded Allergies: NO KNOWN ALLERGIES (Unverified , 08/09/22) Home Meds Active Scripts Ondansetron Odt 4MG Tab (ZOFRAN PO) 4 Mg Tb, 4 MG PO TIDPRN PRN for 3 Days, #9 TAB ODT TAB-DISSOLVE IN MOUTH, THEN SWALLOW Prov:NBA TAYLOR MD 11/27/24 Levofloxacin Hemihydrate (LEVAQUIN 500 MG) 500 Mg Tab, 500 MG PO DAILY for 7 Days, #7 TAB Prov:NBA TAYLOR MD 11/27/24 Metronidazole (Flagyl) 500 Mg Tab, 500 MG PO BID for 7 Days, #14 TAB Prov:NBA TAYLOR MD 11/27/24 Cephalexin (KEFLEX CAPSULE) 250 Mg Cp, 500 MG PO Q6HR, #28 CAP Prov:ALEXANDRA REDDY MD 02/13/23 Reported Medications Nitroglycerin (NTROSTAT SUBLINGUAL) 0.4 Mg Sl, 0.4 MG SL PRN for CHEST PAIN, TAB *MAY REPEAT EVERY 5 MINUTES X 3 TOTAL IF NO RELIEF, INITIATE ANALGESIC THERAPY. NOTIFY PHYSICIAN *Do not crush. 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 Dry mucous membranes.) Neck: Full Range of Motion, Normal Inspection Respiratory: Lungs Clear, No Accessory Muscle Use, No Respiratory Distress, Normal Breath Sounds Cardiovascular: No Edema, No JVD, Regular Rate/Rhythm Breast Exam: Deferred Gastrointestinal: Soft, Tenderness (Generalized upper and mid abdominal tenderness to palpation. Nontender to percussion. No rebound or guarding.) Genitalia: Deferred Pelvic: Deferred Rectal: Deferred Extremities: Normal inspection, Normal range of motion, Non-tender, No pedal edema Neurologic: Alert (Oriented x4), Normal Affect, Normal Mood, Other (Moves all extremities. Light touch sensation grossly intact.) Cerebellar Function: NOT DONE Reflexes: NOT DONE Skin: Dry, Pallor, Warm Lymphatic: NOT DONE EKG EKG : Comments Sinus rhythm, rate 82, normal AL interval, QRS and QTC prolonged, normal axis, IVCD, possible atypical left bundle-branch block, nonspecific T change. Was a procedure done? Was a procedure done?: No GI differential Dx Differential Diagnosis: Diverticular disease, Gastritis/PUD, Gastroenteritis, Inflammatory BD, Pancreatitis, UTI, Dehydration, Diabetes/ DKA, Electrolyte Imbalance, Food Poisoning, Bacterial, Viral, Impaction, Renal Failure, Ischemic Bowel, Stress Ulcer Other Differential Diagnosis Sepsis, duodenitis, among others X-Ray, Labs, Meds, VS Vital Signs Date Time Temp Pulse Resp B/P (MAP) Pulse Ox O2 Delivery O2 Flow Rate FiO2 12/04/24 22:31 77 20 126/77 12/04/24 22:01 76 12 139/67 12/04/24 22:00 78 96 Room Air* 0 21 12/04/24 21:42 98.3 78 15 138/59 (85) 98 98.3 12/04/24 21:34 98.2 76 14 112/75 (87) 98 98.2 12/04/24 21:25 82 Lab Test 12/04/24 22:35 12/04/24 21:40 Range/Units Troponin I High Sensitivity < 3 L 3 L </=34 ng/L White Blood Count 7.8 4.4-10.8 10^3/uL Red Blood Count 4.43 4.0-5.20 10^6/uL Hemoglobin 13.3 12.2-16.2 g/dL Hematocrit 39.1 36.0-46.0 % Mean Corpuscular Volume 88.2 80.0-100.0 fL Mean Corpuscular Hemoglobin 30.0 28.0-32.0 pg Mean Corpuscular Hemoglobin Concent 34.0 32.0-36.0 g/dL Red Cell Distribution Width 14.3 11.8-14.3 % Platelet Count 296 140-450 10^3/uL Mean Platelet Volume 7.6 6.9-10.8 fL Neutrophils (%) (Auto) 70.3 37.0-80.0 % Lymphocytes (%) (Auto) 10.7 10.0-50.0 % Monocytes (%) (Auto) 15.9 H 0.0-12.0 % Eosinophils (%) (Auto) 2.5 0.0-7.0 % Basophils (%) (Auto) 0.6 0.0-2.0 % Neutrophils # (Auto) 5.5 1.6-8.6 10 ^3/uL Lymphocytes # (Auto) 0.8 0.4-5.4 10 ^3/uL Monocytes # (Auto) 1.2 0-1.3 10 ^3/uL Eosinophils # (Auto) 0.2 0-0.8 10 ^3/uL Basophils # (Auto) 0 0-0.2 10 ^3/uL Nucleated Red Blood Cells 0.1 % Sodium Level 139 136-145 mmol/L Potassium Level 3.2 L 3.5-5.1 mmol/L Chloride Level 101 98-107 mmol/L Carbon Dioxide Level 20 20-31 mmol/L Anion Gap 18 H 5-15 Blood Urea Nitrogen 10 9-23 mg/dL Creatinine 1.12 H 0.550-1.02 mg/dL Glomerular Filtration Rate Calc 52 >90 mL/min BUN/Creatinine Ratio 8.9 L 10.0-20.0 Serum Glucose 122 H 74-106 mg/dL Lactic Acid Level 3.8 *H 0.4-2.0 mmol/L Calcium Level 9.4 8.7-10.4 mg/dL Total Bilirubin 0.4 0.2-1.0 mg/dL Aspartate Amino Transferase (AST) 19 13-40 U/L Alanine Aminotransferase (ALT) 15 7-40 U/L Alkaline Phosphatase 56 46-116 U/L B-Type Natriuretic Peptide 17.05 0-100 pg/mL Total Protein 7.1 5.7-8.2 g/dL Albumin 4.9 H 3.2-4.8 g/dL Lipase 52 12-53 U/L Current Medications Medications (Trade) Dose Ordered Sig/Jose Angel Route Start Time Stop Time Status Last Admin Morphine Sulfate 4 mg ONCE ONCE IV 12/04/24 21:45 12/04/24 21:46 DC 12/04/24 22:01 Ondansetron HCl (Zofran) 4 mg ONCE ONCE IV 12/04/24 21:45 12/04/24 21:46 DC 12/04/24 22:01 Sodium Chloride 2,000 ml @ 1,000 mls/hr Q2H ONCE IV 12/04/24 21:45 12/04/24 23:44 DC 12/04/24 22:02 Cefepime HCl 50 ml @ 12.5 mls/hr ONCE ONCE IV 12/04/24 21:45 12/05/24 01:44 DC 12/04/24 22:01 Linezolid 300 ml @ 150 mls/hr O ONCE IV 12/04/24 22:30 12/05/24 00:29 DC 12/04/24 22:46 Potassium Bicarbonate (Klor-Con/Ef) 50 meq ONCE ONCE PO 12/04/24 22:30 12/04/24 22:31 DC 12/04/24 22:38 PROCEDURE(s): ABPL - CT AB PEL WO CON-NO ORAL OR IV REASON: abd pain n/v/d ORDER NUMBER(s): [id number], ACCESSION NUMBER(s): [id number] CT SCAN ABDOMEN AND PELVIS WITHOUT CONTRAST CLINICAL HISTORY: abd pain n/v/d TECHNIQUE: Helical axial images are obtained from the lung bases through the pelvis without oral contrast. No intravenous contrast was administered. Coronal and sagittal reformatted images were generated from thin section reconstructions. One or more of the following radiation dose reduction techniques were used for this examination: automated exposure control, adjustment of the mA and/or kV according to patient size, use of iterative reconstruction technique. COMPARISON: CT CT AB PEL WO CON-NO ORAL OR IV on DOS: 11/27/24 FINDINGS: LOWER THORAX: Mild scattered atelectasis/ scarring in the imaged lung bases. Coronary artery calcifications. ABDOMEN AND PELVIS: Evaluation of visceral and vascular structures is limited due to lack of contrast administration. As visualized, the unenhanced liver, spleen, pancreas and adrenals appear grossly unremarkable. No sizable, radiopaque cholelithiasis or biliary ductal d ilatation. No hydroureteronephrosis or sizable, obstructing urinary tract calculi identified. Aortoiliac atherosclerotic calcifications. No evidence of abdominal aortic aneurysm. Thickening versus underdistention of the stomach. Question mild thickening of the duodenum again noted. No evidence of small-bowel obstruction. Normal caliber appendix. A few scattered colonic diverticuli. No CT evidence of diverticulitis. No free intraperitoneal air or fluid identified. No sizable bladder calculus. No destructive osseous lesions identified. Degenerative changes at L5-S1. IMPRESSION: Thickening versus underdistention of the stomach. Mild apparent thickening of the duodenum also again noted. Findings are relatively nonspecific but may reflect gastritis/gastroduodenitis. Please correlate clinically. Other relatively chronic appearing findings as above. X-Ray, Labs, Meds, VS Comment 74-year-old female with a history of hypertension, diabetes, dyslipidemia and osteoarthritis brought in by EMS with persistent nausea, vomiting, diarrhea and abdominal pain since 11/26/2024 Vitals unremarkable Exam remarkable for dry mucous membranes, pallor, mid abdominal and upper abdominal tenderness to palpation Rhythm strip independently interpreted by me: Sinus rhythm, rate 82, no ectopy. CT abdomen and pelvis IMPRESSION: Thickening versus underdistention of the stomach. Mild apparent thickening of the duodenum also again noted. Findings are relatively nonspecific but may reflect gastritis/gastroduodenitis. Please correlate clinically. Other relatively chronic appearing findings as above. CBC unremarkable, CMP remarkable for potassium 3.2, creatinine 1.12, lipase normal, BNP and troponin negative, lactic 3.8 Patient treated with the following in the ED: 2 L 0.9 normal saline IV bolus, morphine 4 mg IV, Zofran 4 mg IV, effervescent potassium 50 mEq p.o., cefepime 1 g IV, Zyvox 600 mg IV On re-evaluation, patient states pain and nausea have improved. Vitals were stable. Plan is to admit the patient for IV antibiotics, pain and emesis control, possible GI evaluation Case discussed with PHILIP Rob, who will admit the patient. Time of 1ST Reevaluation: 22:36 Reevaluation 1ST: Improved Patient Education/Counseling: Diagnosis, Treatment, Need For Follow Up Family Education/Counseling: No Family Present Sepsis Sepsis Reasesment Focused Exam Sepsis focused exam: focus exam completed (Vitals stable, capillary refill less than 2 seconds, symptoms improving), time: (2235) Departure 1 Departure Time of Disposition: 22:36 Impression: Primary Impression: Nausea vomiting and diarrhea Additional Impressions: Sepsis Qualified Codes: A41.9 - Sepsis, unspecified organism Acute kidney injury Hypokalemia Gastroduodenitis Disposition: ADMITTED INPATIENT Admit to: Tele Condition: Guarded Critical Care Note Critical Care Time?: Yes (45 min-critical care time only) Critical care comment: Critical care time including multiple bedside re-evaluations, review of lab and imaging studies, and discussion of the case with the admitting provider. Patient is high risk for metabolic and/or hemodynamic decompensation. Stability Stability form required: No Heart Score Heart Score: Heart Score Response (Comments) Value History N/A 0 EKG N/A 0 Age N/A 0 Risk Factors N/A 0 Troponin N/A 0 Total 0 ABRIL LEÓN MD December 04, 2024 22:37
[2024-12-04] MEDS: POTASSIUM EFFERVESENT TAB 25 MEQ PO ONE (22:38)
--- NOTE | 2024-12-04 22:42 | DVH ---
CT SCAN ABDOMEN AND PELVIS WITHOUT CONTRAST CLINICAL HISTORY: abd pain n/v/d TECHNIQUE: Helical axial images are obtained from the lung bases through the pelvis without oral cont rast. No intravenous contrast was administered. Coronal and sagittal reformatted images were generate d from thin section reconstructions. One or more of the following radiation dose reduction techniques were used for this examination: automated exposure control, adjustment of the mA and/or kV according to patient size, use of iterative reconstruction technique. COMPARISON: CT CT AB PEL WO CON-NO ORAL OR IV on DOS: 11/27/24 FINDINGS: LOWER THORAX: Mild scattered atelectasis/ scarring in the imaged lung bases. Coronary artery calcifications. ABDOMEN AND PELVIS: Evaluation of visceral and vascular structures is limited due to lack of contrast administration. As visualized, the unenhanced liver, spleen, pancreas and adrenals appear grossly unremarkable. No si zable, radiopaque cholelithiasis or biliary ductal dilatation. No hydroureteronephrosis or sizable, obstructing urinary tract calculi identified. Aortoiliac atherosclerotic calcifications. No evidence of abdominal aortic aneurysm. Thickening versus underdistention of the stomach. Question mild thickening of the duodenum again note d. No evidence of small-bowel obstruction. Normal caliber appendix. A few scattered colonic diverticu li. No CT evidence of diverticulitis. No free intraperitoneal air or fluid identified. No sizable bladder calculus. No destructive osseous lesions identified. Degenerative changes at L5-S1. IMPRESSION: Thickening versus underdistention of the stomach. Mild apparent thickening of the duodenum also agai n noted. Findings are relatively nonspecific but may reflect gastritis/gastroduodenitis. Please corre late clinically. Other relatively chronic appearing findings as above.
[2024-12-04] MEDS: LINEZOLID 600MG/300ML 300 ML IV ONE (22:46)
[2024-12-04] MEDS ORDERED: ACETAMINOPHEN 325 MG TAB PO PRN (23:00)
[2024-12-04] MEDS: ONDANSETRON HCL 4 MG/2 ML VIAL IV PRN (23:39)
[2024-12-04] MEDS: MORPHINE SULFATE INJ 2 MG/ml SYRG IV PRN (23:41)
[2024-12-05] VITALS (9 sets, daily range): BP systolic 110–134; BP diastolic 62–70; PULSE 64–74; RESP 16–18; TEMP 97.8–98.6; O2SAT 95–98
--- NOTE | 2024-12-05 00:27 | DVHHP2 ---
Admitting Diagnosis: Abdominal pain, Nausea, vomiting, Gastroduodenitis History of Present Illness History Source: Patient Exam Limitations: No limitations HPI Mrs. Jo-Ann Rojas is a 74-year-old female with a history of hypertension, diabetes, dyslipidemia and osteoarthritis who presents with a chief complaint of persistent nausea, vomiting and diarrhea since 11/26/2024. Patient was seen here on 11/26/2024 for the same symptoms. Workup then showed leukocytosis, and CT showed possible duodenitis. Patient was discharged from the ED on Zofran, Levaquin and Flagyl. Patient states she has not been able to keep the medication down without vomiting since being discharged. She also has persistent mid abdominal pain. She denies any fever or dysuria, melena, hematochezia. Home Meds Active Scripts Ondansetron Odt 4MG Tab (ZOFRAN PO) 4 Mg Tb, 4 MG PO TIDPRN PRN for 3 Days, #9 TAB ODT TAB-DISSOLVE IN MOUTH, THEN SWALLOW Prov:NBA TAYLOR MD 11/27/24 Levofloxacin Hemihydrate (LEVAQUIN 500 MG) 500 Mg Tab, 500 MG PO DAILY for 7 Days, #7 TAB Prov:NBA TAYLOR MD 11/27/24 Metronidazole (Flagyl) 500 Mg Tab, 500 MG PO BID for 7 Days, #14 TAB Prov:NBA TAYLOR MD 11/27/24 Cephalexin (KEFLEX CAPSULE) 250 Mg Cp, 500 MG PO Q6HR, #28 CAP Prov:ALEXANDRA REDDY MD 02/13/23 Reported Medications Metformin Hydrochloride (Metformin Hcl) 500 Mg Tab, 1000 MG PO BID for 30 Days, MG 12/05/24 Nitroglycerin (NTROSTAT SUBLINGUAL) 0.4 Mg Sl, 0.4 MG SL PRN for CHEST PAIN, TAB *MAY REPEAT EVERY 5 MINUTES X 3 TOTAL IF NO RELIEF, INITIATE ANALGESIC THERAPY. NOTIFY PHYSICIAN *Do not crush. 08/09/22 Metformin Hydrochloride (Metformin Hcl) 500 Mg Tab, 500 MG PO IBID for ON HOLD 08/11/22 for 30 Days, MG 08/09/22 Benazepril Hcl (Benazepril Hcl) 40 Mg Tab, 40 MG PO DAILY, MG 08/11/20 Atenolol (Atenolol) 25 Mg Tab, 25 MG PO DAILY, MG 08/11/20 Ibuprofen Micronized (Ibuprofen) 800 Mg Tab, 800 MG PO TIDP, TAB 08/11/20 Discontinued Reported Medications Alprazolam (Alprazolam) 1 Mg Tab, 1 TAB PO DAILY, #60 TAB 08/11/20 Past Medical History Cardiac: HTN, Other (dyslipidemia ) Pulmonary: No pertinent Hx Central Nervous System: No pertinent Hx GI: No pertinent Hx Hemotology/Oncology: No pertinent Hx Hepatobiliary: No pertinent Hx Psychiatric: No pertinent Hx Musculoskeletal: No pertinent Hx Rheumotologic: No pertinent Hx Infectious Disease: No peritnent Hx ENT: No pertinent Hx Renal/: No pertinent Hx Endocrine: NIDDM, Other (osteoarthritis) Dermatology: No pertinent Hx Patient Family History: Diabetes mellitus G8 MOTHER G8 BROTHER FH: heart attack G8 FATHER Smoker: No Hx (Negative) Alocohol: None Drugs: None Lives with: With family Domestic Violence: Neg Review of Systems Constitutional: No symptom reported Ears, Nose, & Throat: No symptom reported Eyes: No symptom reported Pulmonary/Respiratory: No symptom reported Cardiovascular: No symptom reported Gastrointestinal: Nausea, Vomiting, Abdominal Pain, Diarrhea Genitourinary: No symptom reported Musculoskeletal: No symptom reported Skin: No symptom reported Psychiatric: No symptom reported Endocrine: No symptom reported Hemotologic/Lymphatic: No symptom reported H&P Exam Vital Signs Vital Signs Date Time Temp Pulse Resp B/P (MAP) Pulse Ox O2 Delivery O2 Flow Rate FiO2 12/04/24 23:41 76 17 128/69 12/04/24 22:00 96 Room Air* 0 21 12/04/24 21:42 98.3 98.3 General Appeara: Well developed, Well nourished, Normal Appearance Head Exam: Normal inspection Neck Exam: Normal inspection, Non-tender, Normal alignment Eye Exam: bilateral eye Normal inspection, bilateral eye PERRL, bilateral eye EOMI Ear Exam: bilateral ear Auricle normal Nasal Exam: Normal inspection Mouth: Normal Inspection Pulmonary/Respiratory: Normal inspection, Normal breath sounds, Chest non-tende r, Lungs clear Cardiovascular/Chest: Normal inspection, Regular rate, Normal Rhythm Peripheral Pulses: 2+ dorsalis pedis (R), 2+ dorsalis pedis (L), 2+ Radial (R), 2+ Radial (L) Abdominal Exam: Normal bowel sounds, Soft, No tenderness 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: Normal hearing, Normal speech, PERRL Neuro/Mental St: Alert, Oriented Appearance: Appropriate appearance, Appropriate insight Eye contact/ Speech: Cooperative, Good eye contact, Normal speech Thoughts/Psych: Normal thought pattern Skin Exam: Normal inspection, Normal color, Warm/dry Labs/Xrays Labs Test 12/04/24 23:30 12/04/24 22:35 12/04/24 21:40 Range/Units Lactic Acid Level 2.6 *H 0.4-2.0 mmol/L Troponin I High Sensitivity < 3 L </=34 ng/L White Blood Count 7.8 4.4-10.8 10^3/uL Red Blood Count 4.43 4.0-5.20 10^6/uL Hemoglobin 13.3 12.2-16.2 g/dL Hematocrit 39.1 36.0-46.0 % Mean Corpuscular Volume 88.2 80.0-100.0 fL Mean Corpuscular Hemoglobin 30.0 28.0-32.0 pg Mean Corpuscular Hemoglobin Concent 34.0 32.0-36.0 g/dL Red Cell Distribution Width 14.3 11.8-14.3 % Platelet Count 296 140-450 10^3/uL Mean Platelet Volume 7.6 6.9-10.8 fL Neutrophils (%) (Auto) 70.3 37.0-80.0 % Lymphocytes (%) (Auto) 10.7 10.0-50.0 % Monocytes (%) (Auto) 15.9 H 0.0-12.0 % Eosinophils (%) (Auto) 2.5 0.0-7.0 % Basophils (%) (Auto) 0.6 0.0-2.0 % Neutrophils # (Auto) 5.5 1.6-8.6 10 ^3/uL Lymphocytes # (Auto) 0.8 0.4-5.4 10 ^3/uL Monocytes # (Auto) 1.2 0-1.3 10 ^3/uL Eosinophils # (Auto) 0.2 0-0.8 10 ^3/uL Basophils # (Auto) 0 0-0.2 10 ^3/uL Nucleated Red Blood Cells 0.1 % Sodium Level 139 136-145 mmol/L Potassium Level 3.2 L 3.5-5.1 mmol/L Chloride Level 101 98-107 mmol/L Carbon Dioxide Level 20 20-31 mmol/L Anion Gap 18 H 5-15 Blood Urea Nitrogen 10 9-23 mg/dL Creatinine 1.12 H 0.550-1.02 mg/dL Glomerular Filtration Rate Calc 52 >90 mL/min BUN/Creatinine Ratio 8.9 L 10.0-20.0 Serum Glucose 122 H 74-106 mg/dL Calcium Level 9.4 8.7-10.4 mg/dL Total Bilirubin 0.4 0.2-1.0 mg/dL Aspartate Amino Transferase (AST) 19 13-40 U/L Alanine Aminotransferase (ALT) 15 7-40 U/L Alkaline Phosphatase 56 46-116 U/L B-Type Natriuretic Peptide 17.05 0-100 pg/mL Total Protein 7.1 5.7-8.2 g/dL Albumin 4.9 H 3.2-4.8 g/dL Lipase 52 12-53 U/L Assessment/Plan Problem List: (1) Gastroduodenitis (2) Abdominal pain (3) Nausea vomiting and diarrhea Plan This is a 74 yo female with known history of hypertension, DM, Dyslipidemia, osteoarthritis who presents to the hospital with persistent abdominal pain, nausea, vomiting and diarrhea since last visit on 11/26 unable to take prescribed PO antibiotics 1. Abdominal pain 2. Gastroduodenitis 3. N/V/D Plan: Admit Med Surgical Gastroenterology consultation IV antibiotics IV fluids GI ppx Stool occult blood Antiemetics as needed Analgesics as needed Discussed all above with patient who verbalized agreement and understanding of care plan. All questions were answered. Discussed with supervising MD. Patient's chart is reviewed and discussed with the nurse practitioner. Patient is seen and evaluated by me today. I agree with the nurse practitioner's evaluation, documentation, assessment and care plan as outlined. Plan discussed with: Patient, Other Code Visit Code Visit Total Time (mins): 45 RAH VICTOR December 05, 2024 00:27 SERGIO ARSHAD MD December 05, 2024 12:36
[2024-12-05] MEDS: SODIUM CHLORIDE 0.9% 1,000 ML IV SCH (00:43)
[2024-12-05] MEDS: HYDROcodone-ACET 5/325MG TAB PO PRN (02:09)
[2024-12-05] MEDS ORDERED: METF-370 PO (02:51)
[2024-12-05] MEDS: ONDANSETRON HCL 4 MG/2 ML VIAL IV PRN (04:57)
[2024-12-05] MEDS: MORPHINE SULFATE INJ 2 MG/ml SYRG IV PRN (04:58)
[2024-12-05] MEDS: metroNIDAZOLE 500MG/100ML 100 ML IV SCH (04:58)
--- NOTE | 2024-12-05 06:26 | ECG ---
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
[2024-12-05 06:38] LABS: COVID19 ANTIGEN SOFIA FIA NEGATIVE (NEGATIVE)
[2024-12-05 09:22] LABS: Chloride 105 mmol/L (98-107); Sodium 140 mmol/L (136-145)
[2024-12-05 09:23] LABS: Anion Gap 10 (5-15); Carbon Dioxide 25 mmol/L (20-31)
[2024-12-05 09:28] LABS: BUN/Creatinine Ratio 8.6 (10.0-20.0)
[2024-12-05 09:29] LABS: Hematocrit 34.9 % (36.0-46.0); Hemoglobin 11.8 g/dL (12.2-16.2); Mean Corpuscular Hemoglobin 29.7 pg (28.0-32.0); Mean Corpuscular Hgb Conc. 33.8 g/dL (32.0-36.0); Platelet Count (auto) 249 10^3/uL (140-450); Red Blood Cells 3.97 10^6/uL (4.0-5.20); Red Cell Distribution Width 14.1 % (11.8-14.3)
[2024-12-05 09:37] LABS: Basophils % (manual) 0 (0.0-2.0); Blast Cells 0; Metamyelocytes % 0; Myelocytes % 0; Promyelocytes % 0; Reactive Lymphocytes 0
[2024-12-05 09:40] LABS: Blood Urea Nitrogen 8 mg/dL (9-23); Glucose 114 mg/dL (74-106); Potassium 2.9 mmol/L (3.5-5.1)
[2024-12-05] MEDS ORDERED: levoFLOXacin 500MG 100 ML IV SCH (10:00)
[2024-12-05 10:27] LABS: Band Neutrophils % (manual) 1; Eosinophils % (manual) 3 (0-7); Lymphocytes % (manual) 26 (10.0-50.0); Monocytes % (manual) 19 (0-12); Platelet Estimate Adequate; RBC Morphology Normal
[2024-12-05] MEDS: PANTOPRAZOLE 40 MG/10 ML VIAL INJ IV SCH (10:30)
[2024-12-05] MEDS ORDERED: MAGNESIUM SULFATE 1GM/100ML 100 ML IV SCH (13:00)
[2024-12-05] MEDS: POTASSIUM CHL 20 Meq TABLET PO ONE (14:07)
[2024-12-05] MEDS: POTASSIUM CHLORIDE 20 MEQ, LIDOCAINE 1% (LOCAL ANESTH.) 2 ML in SODIUM CHL 0.9% 100 ML IV ONE (14:11)
[2024-12-05] MEDS: MAGNESIUM SULFATE 1GM/100ML 100 ML IV SCH (18:06)
--- NOTE | 2024-12-05 19:08 | DVHINCON2 ---
Date of service: December 05, [address] Rob Reason for Consultation Abdominal pain nausea vomiting History of Present Illness This 74-year-old female presented to the emergency room with complaints of abdominal pain nausea vomiting and diarrhea since 11/26/2024 patient was apparently seen for same problems about a week ago the in apparently had a CAT scan showed possible duodenitis and patient was sent home on antibiotics and Zofran patient has not been able to keep any medication down without vomiting and having abdominal pain denied any hematemesis or melena or hematochezia Past Medical History Unremarkable Past Surgical History None Family History: Diabetes mellitus G8 MOTHER G8 BROTHER FH: heart attack G8 FATHER Family History Noncontributory Social History Denies smoking or drinking Allergies: Coded Allergies: NO KNOWN ALLERGIES (Unverified , 08/09/22) Home Meds Active Scripts Ondansetron Odt 4MG Tab (ZOFRAN PO) 4 Mg Tb, 4 MG PO TIDPRN PRN for 3 Days, #9 TAB ODT TAB-DISSOLVE IN MOUTH, THEN SWALLOW Prov:NBA TAYLOR MD 11/27/24 Levofloxacin Hemihydrate (LEVAQUIN 500 MG) 500 Mg Tab, 500 MG PO DAILY for 7 Days, #7 TAB Prov:NBA TAYLOR MD 11/27/24 Metronidazole (Flagyl) 500 Mg Tab, 500 MG PO BID for 7 Days, #14 TAB Prov:NBA TAYLOR MD 11/27/24 Cephalexin (KEFLEX CAPSULE) 250 Mg Cp, 500 MG PO Q6HR, #28 CAP Prov:ALEXANDRA REDDY MD 02/13/23 Reported Medications Metformin Hydrochloride (Metformin Hcl) 500 Mg Tab, 1000 MG PO BID for 30 Days, MG 12/05/24 Nitroglycerin (NTROSTAT SUBLINGUAL) 0.4 Mg Sl, 0.4 MG SL PRN for CHEST PAIN, TAB *MAY REPEAT EVERY 5 MINUTES X 3 TOTAL IF NO RELIEF, INITIATE ANALGESIC THERAPY. NOTIFY PHYSICIAN *Do not crush. 08/09/22 Metformin Hydrochloride (Metformin Hcl) 500 Mg Tab, 500 MG PO IBID for ON HOLD 08/11/22 for 30 Days, MG 08/09/22 Benazepril Hcl (Benazepril Hcl) 40 Mg Tab, 40 MG PO DAILY, MG 08/11/20 Atenolol (Atenolol) 25 Mg Tab, 25 MG PO DAILY, MG 08/11/20 Ibuprofen Micronized (Ibuprofen) 800 Mg Tab, 800 MG PO TIDP, TAB 08/11/20 Discontinued Reported Medications Alprazolam (Alprazolam) 1 Mg Tab, 1 TAB PO DAILY, #60 TAB 08/11/20 Current Medications Current Medications Medications (Trade) Dose Ordered Sig/Jose Angel Route PRN Reason Start Time Stop Time Status Last Admin Ondansetron HCl (Zofran) 4 mg Q6HPRN PRN IV NAUSEA / VOMITING 12/04/24 23:00 12/05/24 04:44 DC 12/04/24 23:39 Morphine Sulfate 2 mg Q6HPRN PRN IV PAIN SCALE 7 THRU 10 12/04/24 23:00 12/05/24 04:03 DC 12/04/24 23:41 Levofloxacin/ Dextrose 100 ml @ 100 mls/hr DAILY IV 12/05/24 10:00 12/05/24 06:30 DC Metronidazole 100 ml @ 100 mls/hr Q8HR IV 12/05/24 06:00 12/05/24 15:50 Pantoprazole Sodium (Protonix) 40 mg DAILY IV 12/05/24 10:00 12/05/24 10:30 Acetaminophen (Tylenol Tablet) 650 mg Q6HPRN PRN PO PAIN SCALE 1-3 OR TEMP>100.4 12/04/24 23:00 Acetaminophen/ Hydrocodone Bitart (Pine Top 5/325MG Tab) 1 tab Q6HPRN PRN PO PAIN SCALE 1 THRU 6 12/04/24 23:00 12/05/24 18:35 Sodium Chloride 1,000 ml @ 75 mls/hr [id number] IV 12/04/24 23:00 12/05/24 00:43 Morphine Sulfate 2 mg Q4HPRN PRN IV PAIN SCALE 7 THRU 10 12/05/24 04:00 12/05/24 17:01 Ondansetron HCl (Zofran) 4 mg Q6HPRN PRN IV NAUSEA / VOMITING 12/05/24 04:45 12/05/24 12:23 Potassium Chloride (Klor-Con Tablet) 10 meq BID PO 12/05/24 22:00 Magnesium Sulfate/ Dextrose 100 ml @ 100 mls/hr Q1HR IV 12/05/24 13:00 12/05/24 14:59 Cancel Magnesium Sulfate/ Dextrose 100 ml @ 100 mls/hr Q1HR IV 12/05/24 18:00 12/05/24 19:59 12/05/24 18:06 Review of Systems Noncontributory Vital Signs Vital Signs Date Time Temp Pulse Resp B/P (MAP) Pulse Ox O2 Delivery O2 Flow Rate FiO2 12/05/24 17:31 69 16 109/60 12/05/24 16:30 97.8 97 97.8 12/05/24 08:10 Room Air* 0 21 Physical Exam Moderately built and nourished female in no acute distress Vitals stable Lungs are clear Cardiovascular unremarkable Abdomen is soft mild nonspecific fullness and tenderness no rigidity no guarding no masses Extremities no edema Neuro grossly intact Labs/Diagnostic Data Labs Test 12/05/24 07:35 12/05/24 05:51 12/05/24 03:26 12/05/24 00:20 Range/Units White Blood Count 5.0 # 4.4-10.8 10^3/uL Red Blood Count 3.97 L 4.0-5.20 10^6/uL Hemoglobin 11.8 L 12.2-16.2 g/dL Hematocrit 34.9 #L 36.0-46.0 % Mean Corpuscular Volume 88.0 80.0-100.0 fL Mean Corpuscular Hemoglobin 29.7 28.0-32.0 pg Mean Corpuscular Hemoglobin Concent 33.8 32.0-36.0 g/dL Red Cell Distribution Width 14.1 11.8-14.3 % Platelet Count 249 140-450 10^3/uL Mean Platelet Volume 7.9 6.9-10.8 fL Neutrophils (%) (Auto) 37.0-80.0 % Lymphocytes (%) (Auto) 10.0-50.0 % Monocytes (%) (Auto) 0.0-12.0 % Basophils (%) (Auto) 0.0-2.0 % Neutrophils # (Auto) 1.6-8.6 10 ^3/uL Lymphocytes # (Auto) 0.4-5.4 10 ^3/uL Monocytes # (Auto) 0-1.3 10 ^3/uL Differential Total Cells Counted 100.0 100 Neutrophils % (Manual) 51 37.0-80.0 Band Neutrophils % (Manual) 1 Lymphocytes % (Manual) 26 10.0-50.0 Monocytes % (Manual) 19 H 0-12 Eosinophils % (Manual) 3 0-7 Basophils % (Manual) 0 0.0-2.0 Metamyelocytes % (manual) 0 Myelocytes % (Manual) 0 Promyelocytes % (Manual) 0 Blast Cells % (Manual) 0 Reactive Lymphocytes 0 Platelet Estimate Adequate Red Blood Cell Morphology Normal Sodium Level 140 136-145 mmol/L Potassium Level 2.9 L 3.5-5.1 mmol/L Chloride Level 105 98-107 mmol/L Carbon Dioxide Level 25 20-31 mmol/L Anion Gap 10 5-15 Blood Urea Nitrogen 8 L 9-23 mg/dL Creatinine 0.93 0.550-1.02 mg/dL Glomerular Filtration Rate Calc 65 >90 mL/min BUN/Creatinine Ratio 8.6 L 10.0-20.0 Serum Glucose 114 H 74-106 mg/dL Lactic Acid Level 1.2 0.4-2.0 mmol/L Calcium Level 9.0 8.7-10.4 mg/dL SARS-CoV-2 Antigen (Rapid) Negative NEGATIVE Stool Occult Blood Positive Negative Stool Occult Blood Sample #3 Negative Stool for White Cells None seen Test 12/04/24 23:30 12/04/24 22:35 12/04/24 21:40 Range/Units Magnesium Level 1.6 1.6-2.6 mg/dL Troponin I High Sensitivity < 3 L </=34 ng/L Eosinophils (%) (Auto) 2.5 0.0-7.0 % Eosinophils # (Auto) 0.2 0-0.8 10 ^3/uL Basophils # (Auto) 0 0-0.2 10 ^3/uL Nucleated Red Blood Cells 0.1 % Total Bilirubin 0.4 0.2-1.0 mg/dL Aspartate Amino Transferase (AST) 19 13-40 U/L Alanine Aminotransferase (ALT) 15 7-40 U/L Alkaline Phosphatase 56 46-116 U/L B-Type Natriuretic Peptide 17.05 0-100 pg/mL Total Protein 7.1 5.7-8.2 g/dL Albumin 4.9 H 3.2-4.8 g/dL Lipase 52 12-53 U/L Assessment 74-year-old with a history of hypertension diabetes hyperlipidemia osteoarthritis admitted with complaints of persistent nausea vomiting and diarrhea patient had a CT scan apparently the which had shown some duodenitis. History examination is unremarkable abdomen soft hemoglobin was 13.3 white count is 7.8 lipase was 52 liver enzymes are unremarkable Clinical impression Probable gastroenteritis Rule out C diff or other pathology Plan/Recommendation Recommend stool studies O&P and C&S and C diff Symptomatic with PPIs Carafate etc. If symptoms persist repeat CT scan with oral contrast May also need endoscopic evaluation if symptoms persist Thank you Dr. Rubio Plan discussed with: Patient JACK RUBIO MD December 05, 2024 19:08
[2024-12-05] MEDS: POTASSIUM CHL 10 Meq TABLET PO SCH (21:03)
[2024-12-06 01:00] VITALS: BP 139/64; PULSE 68; RESP 16; TEMP 98.1; O2SAT 98
[2024-12-06 05:00] VITALS: BP 120/53; PULSE 72; RESP 17; TEMP 98; O2SAT 98
[2024-12-06 06:46] LABS: Anion Gap 10 (5-15); Carbon Dioxide 24 mmol/L (20-31); Chloride 107 mmol/L (98-107); Sodium 141 mmol/L (136-145)
[2024-12-06 06:48] LABS: Calcium 9.3 mg/dL (8.7-10.4); Potassium 3.4 mmol/L (3.5-5.1)
[2024-12-06 06:53] LABS: Basophils # (auto) 0 10 ^3/uL (0-0.2); Basophils % (auto) 0.7 % (0.0-2.0); Eosinophils # (auto) 0.4 10 ^3/uL (0-0.8); Eosinophils % (auto) 7.2 % (0.0-7.0); Hematocrit 37.2 % (36.0-46.0); Hemoglobin 12.8 g/dL (12.2-16.2); Lymphocytes # (auto) 1.3 10 ^3/uL (0.4-5.4); Lymphocytes % (auto) 21.4 % (10.0-50.0); Magnesium 2.1 mg/dL (1.6-2.6); Mean Corpuscular Hemoglobin 30.5 pg (28.0-32.0); Mean Corpuscular Hgb Conc. 34.5 g/dL (32.0-36.0); Mean Corpuscular Volume 88.5 fL (80.0-100.0); Monocytes # (auto) 0.8 10 ^3/uL (0-1.3); Neutrophils # (auto) 3.5 10 ^3/uL (1.6-8.6); Neutrophils % (auto) 57.7 % (37.0-80.0); Platelet Count (auto) 260 10^3/uL (140-450); Red Cell Distribution Width 14.5 % (11.8-14.3)
[2024-12-06 07:04] LABS: BUN/Creatinine Ratio 6.3 (10.0-20.0); Blood Urea Nitrogen < 5 mg/dL (9-23); Glucose 132 mg/dL (74-106)
[2024-12-06 08:56] VITALS: BP 125/64; PULSE 76; RESP 16; TEMP 98.2; O2SAT 97
[2024-12-06 12:30] VITALS: BP 122/65; PULSE 64; RESP 17; TEMP 98; O2SAT 97
[2024-12-06] MEDS ORDERED: GASTROGRAFIN 30 ML SOL ONE (14:46)
[2024-12-06] MEDS ORDERED: IOHEXOL 300 MG/ML 100ML BOTTLE IJ ONE (16:44)
[2024-12-06] MEDS ORDERED: ACETAMINOPHEN 325 MG TAB PO PRN (16:45)
--- NOTE | 2024-12-06 16:48 | DVHPN2 ---
Progress Note - Dictate Date Seen: December 06, 2024 Medical Necessity Reason Pt with a Central, PICC or Fol: No Subjective Still comfortably in his of some abdominal discomfort. Requesting her morphine to be changed to q.4 hours from q.6 hours. Evaluated by GI recommending current treatment and if not improve consider CT of the abdomen and pelvis as well as EGD as appropriate. vital signs Vital Sign Date Time Temp Pulse Resp B/P (MAP) Pulse Ox O2 Delivery O2 Flow Rate FiO2 12/06/24 13:49 88 16 93/64 12/06/24 12:30 98.0 97 98.0 12/06/24 08:05 Room Air* 0 21 Total Intake and Output 12/05/24 12/05/24 12/06/24 15:00 23:00 07:00 Intake Total 1300 ml 200 ml Balance 1300 ml 200 ml medications Current Medications Medications Dose Ordered Sig/Jose Angel Route Start Time Stop Time Status Last Admin Dose Admin Metronidazole 100 ml @ 100 mls/hr Q8HR IV 12/05/24 06:00 12/06/24 14:12 100 MLS/HR Pantoprazole Sodium 40 mg DAILY IV 12/05/24 10:00 12/06/24 08:46 40 MG Sodium Chloride 1,000 ml @ 75 mls/hr [id number] IV 12/04/24 23:00 12/06/24 16:11 75 MLS/HR Morphine Sulfate 2 mg Q4HPRN PRN IV 12/05/24 04:00 12/06/24 13:19 2 MG Ondansetron HCl 4 mg Q6HPRN PRN IV 12/05/24 04:45 12/06/24 05:58 4 MG Potassium Chloride 10 meq BID PO 12/05/24 22:00 12/06/24 08:46 10 MEQ Magnesium Sulfate/ Dextrose 100 ml @ 100 mls/hr Q1HR IV 12/05/24 13:00 12/05/24 14:59 Cancel Acetaminophen/ Hydrocodone Bitart 1 tab Q4HPRN PRN PO 12/06/24 15:30 Acetaminophen 650 mg Q6HPRN PRN PO 12/06/24 16:45 objective Abdomen is bloated but tympanic to palpation. Soft. Nontender. Active bowel sounds. laboratory and microbiology Laboratory Tests 12/06/24 05:39 Test 12/06/24 05:39 Range/Units Serum Glucose 132 H 74-106 mg/dL Assessment/Plan I will order a CT of the abdomen and pelvis with IV and oral contrast to further evaluate her symptoms. Continue current antibiotics. Continue full liquid diet. Further clinical management per clinical course and recommendations from the GI physician. Discussed with the patient and nurse regarding care plan. Problems(with codes): (1) Gastroduodenitis (2) Acute kidney injury (3) Nausea vomiting and diarrhea (4) Abdominal pain Plan discussed with: Other SERGIO ARSHAD MD December 06, 2024 16:48
[2024-12-06 16:58] VITALS: BP 115/66; PULSE 62; RESP 16; TEMP 98.3; O2SAT 98
--- NOTE | 2024-12-06 17:28 | DVH ---
CT abdomen and pelvis done with oral and IV contrast INDICATION: colitis Comparison: 11/27/2024 TECHNIQUE: Following IV administration 100 mL Omnipaque 300 and oral Gastrografin Serial axial images were performed through the abdomen and pelvis and then reformatted in the sagittal and coronal plane . All CT scans at this medical facility are performed using dose modulation techniques as appropriate to a performed exam including the following: Automated exposure control was utilized; adjustment of the MA and/or KvP according to patient size; and use of iterative reconstruction technique. FINDINGS: Liver and spleen are normal in size without focal mass. No renal masses, stones or hydronep hrosis. No masses or enlargement of the adrenal glands or pancreas. No biliary dilatation. No gallsto stephanie. No distention of bowel loops to suggest mechanical obstruction of bowel. The appendix is normal in appearance. No free fluid. Within the pelvis, bladder is smooth walled without stones. No abnormal masses or fluid collections. IMPRESSION: 1. No evidence of colitis.No evidence 2. Of acute pathology in the abdomen or pelvis. Computed Tomographic Radiation Dosimetry Report: Total CTDI vol = 9.52mGy Total DLP = 480.87mGy-cm Lo w dose protocols were performed.
--- NOTE | 2024-12-06 20:41 | DVHPN2 ---
Progress Note - Dictate Date Seen: December 06, 2024 Medical Necessity Reason Pt with a Central, PICC or Fol: No Subjective Patient has complaints of occasional diarrhea no bleeding stool for occult blood and nausea anorexia Repeat CT scan did not show anything gross abnormalities but the earlier CAT scan at his duodenitis of the stomach wall vital signs Vital Sign Date Time Temp Pulse Resp B/P (MAP) Pulse Ox O2 Delivery O2 Flow Rate FiO2 12/06/24 18:03 75 16 106/70 12/06/24 16:58 98.3 98 98.3 12/06/24 08:05 Room Air* 0 21 Total Intake and Output 12/05/24 12/05/24 12/06/24 14:59 22:59 06:59 Intake Total 1300 ml 200 ml Balance 1300 ml 200 ml medications Current Medications Medications Dose Ordered Sig/Jose Angel Route Start Time Stop Time Status Last Admin Dose Admin Metronidazole 100 ml @ 100 mls/hr Q8HR IV 12/05/24 06:00 12/06/24 14:12 100 MLS/HR Pantoprazole Sodium 40 mg DAILY IV 12/05/24 10:00 12/06/24 08:46 40 MG Sodium Chloride 1,000 ml @ 75 mls/hr [id number] IV 12/04/24 23:00 12/06/24 16:11 75 MLS/HR Morphine Sulfate 2 mg Q4HPRN PRN IV 12/05/24 04:00 12/06/24 17:33 2 MG Ondansetron HCl 4 mg Q6HPRN PRN IV 12/05/24 04:45 12/06/24 05:58 4 MG Potassium Chloride 10 meq BID PO 12/05/24 22:00 12/06/24 08:46 10 MEQ Magnesium Sulfate/ Dextrose 100 ml @ 100 mls/hr Q1HR IV 12/05/24 13:00 12/05/24 14:59 Cancel Acetaminophen/ Hydrocodone Bitart 1 tab Q4HPRN PRN PO 12/06/24 15:30 Acetaminophen 650 mg Q6HPRN PRN PO 12/06/24 16:45 objective Abdomen is soft nontender no masses bowel sounds normal laboratory and microbiology Laboratory Tests 12/06/24 05:39 Test 12/06/24 05:39 Range/Units Serum Glucose 132 H 74-106 mg/dL Assessment/Plan Patient has complaints of diarrhea still stool C diff and other things a pending but stool occult blood is positive Has got abnormal upper GI stomach in the duodenum in the CAT scan will recommend EGD evaluation especially with a Hemoccult-positive in the abnormal CT scan of the stomach. Procedure risks benefits alternatives explained to the patient and agreeable Thank you Dr. uRbio Plan discussed with: Patient JACK RUBIO MD December 06, 2024 20:40
[2024-12-06 21:00] VITALS: BP 143/65; PULSE 73; RESP 18; TEMP 98.1; O2SAT 98
[2024-12-06] MEDS: HYDROcodone-ACET 5/325MG TAB PO PRN (21:46)
[2024-12-07] MEDS ORDERED: diphenhdrAMINE HCL 50 MG/1 ML VL IV PRN (00:15)
[2024-12-07] MEDS ORDERED: diphenhdrAMINE HCL 50 MG/1 ML VL IM ONE (00:15)
[2024-12-07] MEDS: diphenhdrAMINE HCL 50 MG/1 ML VL IV ONE (00:35)
[2024-12-07 00:43] VITALS: BP 123/65; PULSE 73; RESP 17; TEMP 98.4; O2SAT 97
[2024-12-07 05:08] VITALS: BP 123/66; PULSE 78; RESP 16; TEMP 98.1; O2SAT 98
[2024-12-07 07:04] LABS: Calcium 9.1 mg/dL (8.7-10.4); Chloride 104 mmol/L (98-107); Potassium 3.6 mmol/L (3.5-5.1); Sodium 141 mmol/L (136-145)
[2024-12-07 07:05] LABS: Anion Gap 12 (5-15); Carbon Dioxide 25 mmol/L (20-31)
[2024-12-07 07:10] LABS: Glucose 148 mg/dL (74-106)
[2024-12-07 07:11] LABS: BUN/Creatinine Ratio 6.7 (10.0-20.0); Blood Urea Nitrogen < 5 mg/dL (9-23)
[2024-12-07 09:00] VITALS: BP 139/72; PULSE 76; RESP 17; TEMP 98.1; O2SAT 97
[2024-12-07] MEDS ORDERED: SODIUM CHLORIDE LOCK 10 ML ONE (09:40)
[2024-12-07 09:45] VITALS: PULSE 86; RESP 16; O2SAT 97
[2024-12-07] MEDS: LIDOCAINE VISCOUS 2% 15ML UD ONE (09:52)
[2024-12-07] MEDS: MIDAZOLAM HCL 5 MG/ML-1ML VIAL ONE (09:53)
[2024-12-07] MEDS: fentaNYL CITRATE 100 MCG/2 ML VL ONE (09:53)
[2024-12-07] MEDS: diphenhdrAMINE HCL 50 MG/1 ML VL ONE (09:55)
[2024-12-07 10:15] VITALS: O2SAT 97
--- NOTE | 2024-12-07 10:15 | DVHOP2 ---
Operative Report DATE OF PROCEDURE: 12/07/24 INDICATIONS FOR THE PROCEDURE: Abdominal pain nausea anorexia abnormal CAT scan possible gastric as well as duodenal thickening PROCEDURE PERFORMED: 1. Esophagogastroduodenoscopy and biopsy with cold biopsy forceps EGD with removal of two small gastric polyps with cold biopsy forceps POSTOPERATIVE DIAGNOSIS: Small hiatal hernia Mild esophagitis LA classification B biopsies taken to ensure there is no other pathology with cold biopsy forceps Two small gastric polyps in the body on the greater curve aspect removed with biopsy forceps 5 mm in diameter each Mild antral gastritis biopsies taken to ensure there was no H pylori no ulcers no mass lesions seen Mild duodenitis of the bulb and immediate postbulbar area without any ulcers biopsies taken to ensure there is no celiac disease or othe Suggestions Await the biopsy results Aggressive treatment PPIs and see the response See the results of the H pylori will recommend similar symptomatic from with the diarrhea no will recommend a colon evaluation also later especially if diarrhea persist as an outpatient Thank you Dr. Gilbert and Dr. Ward for asking me to take part in the care of this pleasant patient JACK Escobedo MD December 07, 2024 10:15
[2024-12-07] MEDS: FAMOTIDINE (10MG/ML) 2ML VL IV SCH (11:24)
[2024-12-07] MEDS: NYSTATIN (MOUTH-THROAT) 500,000 UNITS/5 ML SUSP MT SCH (11:25)
[2024-12-07] MEDS ORDERED: LOPE1TAB9 PO (11:39)
[2024-12-07] MEDS ORDERED: NYS5LQ MT (11:39)
[2024-12-07] MEDS ORDERED: PANT40T PO (11:39)
--- NOTE | 2024-12-07 11:40 | DVHDS2 ---
Discharge Summary Date of Admission December 04, 2024 at 22:48 Date of Discharge: December 07, 2024 Labs/Diagnostic Data: Laboratory Results Test 12/07/24 05:49 12/06/24 05:39 12/05/24 07:35 12/05/24 05:51 Sodium Level 141 mmol/L (136-145) Potassium Level 3.6 mmol/L (3.5-5.1) Chloride Level 104 mmol/L (98-107) Carbon Dioxide Level 25 mmol/L (20-31) Anion Gap 12 (5-15) Blood Urea Nitrogen < 5 mg/dL (9-23) Creatinine 0.75 mg/dL (0.550-1.02) Glomerular Filtration Rate Calc 83 mL/min (>90) BUN/Creatinine Ratio 6.7 (10.0-20.0) Serum Glucose 148 mg/dL (74-106) Calcium Level 9.1 mg/dL (8.7-10.4) White Blood Count 6.0 10^3/uL (4.4-10.8) Red Blood Count 4.20 10^6/uL (4.0-5.20) Hemoglobin 12.8 g/dL (12.2-16.2) Hematocrit 37.2 % (36.0-46.0) Mean Corpuscular Volume 88.5 fL (80.0-100.0) Mean Corpuscular Hemoglobin 30.5 pg (28.0-32.0) Mean Corpuscular Hemoglobin Concent 34.5 g/dL (32.0-36.0) Red Cell Distribution Width 14.5 % (11.8-14.3) Platelet Count 260 10^3/uL (140-450) Mean Platelet Volume 7.6 fL (6.9-10.8) Neutrophils (%) (Auto) 57.7 % (37.0-80.0) Lymphocytes (%) (Auto) 21.4 % (10.0-50.0) Monocytes (%) (Auto) 13.0 % (0.0-12.0) Eosinophils (%) (Auto) 7.2 % (0.0-7.0) Basophils (%) (Auto) 0.7 % (0.0-2.0) Neutrophils # (Auto) 3.5 10 ^3/uL (1.6-8.6) Lymphocytes # (Auto) 1.3 10 ^3/uL (0.4-5.4) Monocytes # (Auto) 0.8 10 ^3/uL (0-1.3) Eosinophils # (Auto) 0.4 10 ^3/uL (0-0.8) Basophils # (Auto) 0 10 ^3/uL (0-0.2) Nucleated Red Blood Cells 0.0 % Magnesium Level 2.1 mg/dL (1.6-2.6) Differential Total Cells Counted 100.0 (100) Neutrophils % (Manual) 51 (37.0-80.0) Band Neutrophils % (Manual) 1 Lymphocytes % (Manual) 26 (10.0-50.0) Monocytes % (Manual) 19 (0-12) Eosinophils % (Manual) 3 (0-7) Basophils % (Manual) 0 (0.0-2.0) Metamyelocytes % (manual) 0 Myelocytes % (Manual) 0 Promyelocytes % (Manual) 0 Blast Cells % (Manual) 0 Reactive Lymphocytes 0 Platelet Estimate Adequate Red Blood Cell Morphology Normal Lactic Acid Level 1.2 mmol/L (0.4-2.0) SARS-CoV-2 Antigen (Rapid) Negative (NEGATIVE) Test 12/05/24 03:26 12/05/24 00:20 12/04/24 22:35 12/04/24 21:40 Stool Occult Blood Positive (Negative) Stool Occult Blood Sample #3 (Negative) Stool for White Cells None seen Troponin I High Sensitivity < 3 ng/L (</=34) Total Bilirubin 0.4 mg/dL (0.2-1.0) Aspartate Amino Transferase (AST) 19 U/L (13-40) Alanine Aminotransferase (ALT) 15 U/L (7-40) Alkaline Phosphatase 56 U/L (46-116) B-Type Natriuretic Peptide 17.05 pg/mL (0-100) Total Protein 7.1 g/dL (5.7-8.2) Albumin 4.9 g/dL (3.2-4.8) Lipase 52 U/L (12-53) Other Laboratory Tests 12/07/24 05:49 12/06/24 05:39 Brief Hx & Hospital Course: Mrs. Carlton Rojas is a 74-year-old female with a history of hypertension, diabetes, dyslipidemia and osteoarthritis who presents with a chief complaint of persistent nausea, vomiting and diarrhea since 11/26/2024. Patient was seen here on 11/26/2024 for the same symptoms. Workup then showed leukocytosis, and CT showed possible duodenitis. Patient was discharged from the ED on Zofran, Levaquin and Flagyl. Patient states she has not been able to keep the medication down without vomiting since being discharged. She also has persistent mid abdominal pain. She denies any fever or dysuria, melena, hematochezia. She is admitted and evaluated by back roll lathe operator. Patient had a CT of the abdomen and pelvis unremarkable. Her EGD showed esophagitis and duodenitis. Patient is advised to follow up with the back roll lathe operator for biopsy results. Meantime she is empirically treated with the nystatin and proton pump inhibitor. Patient is feeling better. Tolerating diet. Her symptoms resolved. Therefore it is felt she could be safely discharged home with continued outpatient treatment with these medications and follow up with her PCP and back roll lathe operator as mentioned. I have talked with the patient regarding her hospital diagnosis, procedure she had done, and discharge medications, discharge instructions and follow-up plan of care. She has verbalized understanding of these and agree with the care plan as outlined. Consults/Reason for consult CT abdomen and pelvis done with oral and IV contrast INDICATION: colitis Comparison: 11/27/2024 TECHNIQUE: Following IV administration 100 mL Omnipaque 300 and oral Gastrografin Serial axial images were performed through the abdomen and pelvis and then reformatted in the sagittal and coronal plane. All CT scans at this medical facility are performed using dose modulation techniques as appropriate to a performed exam including the following: Automated exposure control was utilized; adjustment of the MA and/or KvP according to patient size; and use of iterative reconstruction technique. FINDINGS: Liver and spleen are normal in size without focal mass. No renal masses, stones or hydronephrosis. No masses or enlargement of the adrenal glands or pancreas. No biliary dilatation. No gallstones. No distention of bowel loops to suggest mechanical obstruction of bowel. The appendix is normal in appearance. No free fluid. Within the pelvis, bladder is smooth walled without stones. No abnormal masses or fluid collections. IMPRESSION: 1. No evidence of colitis.No evidence 2. Of acute pathology in the abdomen or pelvis. Computed Tomographic Radiation Dosimetry Report: Total CTDI vol = 9.52mGy Total DLP = 480.87mGy-cm Low dose protocols were performed. Operations or Procedures OPERATIVE REPORT ADDENDUM Name: CARLTON ROJAS Acct: [id number] Addendum: JACK FONTAINE MD on 12/07/24 @ 10:22 Procedure details Sedation was given with Versed 5 mg for fentanyl 125 mcg and Benadryl 50 mg Plus gastroscope was passed through oropharynx into the stomach and in the duodenum and the findings are as follows Unfortunately the texture of the procedure was was somehow not saved and hence three dictating Findings Small hiatal hernia with mild esophagitis LA classification B 2. small gastric polyps in the greater curve removed by biopsy forceps 5 mm each Mild antral gastritis biopsies taken to ensure there was no H pylori Mild duodenitis of the bulb and postbulbar area biopsies taken Patient tolerated procedure extremely well post vital stable _ ____ ADDENDUM ELECTRONICALLY SIGNED BY: Operative Report DATE OF PROCEDURE: 12/07/24 INDICATIONS FOR THE PROCEDURE: Abdominal pain nausea anorexia abnormal CAT scan possible gastric as well as duodenal thickening PROCEDURE PERFORMED: 1. Esophagogastroduodenoscopy and biopsy with cold biopsy forceps EGD with removal of two small gastric polyps with cold biopsy forceps POSTOPERATIVE DIAGNOSIS: Small hiatal hernia Mild esophagitis LA classification B biopsies taken to ensure there is no other pathology with cold biopsy forceps Two small gastric polyps in the body on the greater curve aspect removed with biopsy forceps 5 mm in diameter each Mild antral gastritis biopsies taken to ensure there was no H pylori no ulcers no mass lesions seen Mild duodenitis of the bulb and immediate postbulbar area without any ulcers biopsies taken to ensure there is no celiac disease or othe Suggestions Await the biopsy results Aggressive treatment PPIs and see the response See the results of the H pylori will recommend similar symptomatic from with the diarrhea no will recommend a colon evaluation also later especially if diarrhea persist as an outpatient Thank you Dr. Gilbert and Dr. Ward for asking me to take part in the care of this pleasant patient JACK Escobedo MD December 07, 2024 10:15 Condition at Discharge: Stable Final Diagnosis/Problems List Acute duodenitis/esophagitis status post EGD Discharge Disposition: Home Discharge Instruct/Medications Diet: Consistent carbohydrate, Cardiac 2g Na,low cholest Activity: No Restrictions, As Tolerated Follow Up/Referral: Primary care physician in two weeks and referral to back roll lathe operator follow up duodenitis and for elective colonoscopy/screening colonoscopy Medications: As prescribed and home medications per discharge list New Medications: Loperamide HCl (Loperamide HCl) 2 Mg Tab 2 MG PO Q8HPRN PRN, #10 TAB Nystatin (Mouth-Throat) (Mycostatin (Mouth-Throat)) 500,000 Units/5 Ml Ss 5 ML MT TID for 10 Days, #200 ML Pantoprazole Sodium Sesquihydr (Pantoprazole Sodium) 40 Mg Tab 40 MG PO BID, #60 TAB Continued Medications: Atenolol (Atenolol) 25 Mg Tab 25 MG PO DAILY, MG Benazepril Hcl (Benazepril Hcl) 40 Mg Tab 40 MG PO DAILY, MG Metformin Hydrochloride (Metformin Hcl) 500 Mg Tab 1000 MG PO BID for 30 Days, MG Discontinued Medications: Cephalexin (Keflex Capsule) 250 Mg Cp 500 MG PO Q6HR, #28 CAP Ibuprofen Micronized (Ibuprofen) 800 Mg Tab 800 MG PO TIDP, TAB Levofloxacin Hemihydrate (Levaquin 500 Mg) 500 Mg Tab 500 MG PO DAILY for 7 Days, #7 TAB Metformin Hydrochloride (Metformin Hcl) 500 Mg Tab 500 MG PO IBID for ON HOLD 08/11/22 for 30 Days, MG Metronidazole (Flagyl) 500 Mg Tab 500 MG PO BID for 7 Days, #14 TAB Nitroglycerin (Ntrostat Sublingual) 0.4 Mg Sl 0.4 MG SL PRN for CHEST PAIN, TAB *MAY REPEAT EVERY 5 MINUTES X 3 TOTAL IF NO RELIEF, INITIATE ANALGESIC THERAPY. NOTIFY PHYSICIAN *Do not crush. Ondansetron Odt 4MG Tab (Zofran Po) 4 Mg Tb 4 MG PO TIDPRN PRN for 3 Days, #9 TAB ODT TAB-DISSOLVE IN MOUTH, THEN SWALLOW Discharge Statement: "Patient was advised to return to the ER or call 911 if any headaches, dizziness, shortness of breath, chest pain, abdominal pain, bleeding, fevers, or worsening of medical condition. Patient was counseled about treatment plan, medications, possible side effects, patientverbalized understanding. All questions were answered to the best of my ability. This discharge took greater then 30 minutes in planning, reviewing documentation, counseling the patient, and discussing with other team members." ASSESSMENT ASSESSMENT Assessment Acute duodenitis/esophagitis status post EGD SERGIO ARSHAD MD December 07, 2024 11:40
[2024-12-07] MEDS: LOPERAMIDE HCL 2 MG CAP/TAB PO PRN (12:03)
[2024-12-07 12:38] VITALS: BP 126/68; PULSE 83; RESP 18; TEMP 98.1; O2SAT 96
[2024-12-07] MEDS ORDERED: PANTOPRAZOLE 40 MG TAB PO SCH (17:00)
== END 2024-12-07 14:20 | disposition home or self-care (01) | DRG 391 ==
LOC: EDBD 21:24 → ER 21:24 → OVERFLOW 22:48 → EAST 12-05 01:39
PROVIDERS: ADMIT Nurse Practitioner Family; ATTEND Nurse Practitioner Family
PROC: 0DB78ZX Excision of Stomach, Pylorus, Via Natural or Artificial Opening Endoscopic, Diagnostic (ICD-10-PCS; 2024-12-07)
PROC: 0DB68ZX Excision of Stomach, Via Natural or Artificial Opening Endoscopic, Diagnostic (ICD-10-PCS; 2024-12-07)
PROC: 0DB58ZX Excision of Esophagus, Via Natural or Artificial Opening Endoscopic, Diagnostic (ICD-10-PCS; principal; 2024-12-07 09:45)
DX: K29.90 Gastroduodenitis, unspecified, without bleeding (principal); N17.0 Acute kidney failure with tubular necrosis; K20.90 Esophagitis, unspecified without bleeding; K52.9 Noninfective gastroenteritis and colitis, unspecified; E11.9 Type 2 diabetes mellitus without complications; E78.5 Hyperlipidemia, unspecified; E87.6 Hypokalemia; K31.7 Polyp of stomach and duodenum; Z20.822 Contact with and (suspected) exposure to COVID-19; K44.9 Diaphragmatic hernia without obstruction or gangrene; I10 Essential (primary) hypertension; Z79.84 Long term (current) use of oral hypoglycemic drugs; Z83.3 Family history of diabetes mellitus; Z79.2 Long term (current) use of antibiotics; Z79.899 Other long term (current) drug therapy; Z79.1 Long term (current) use of non-steroidal anti-inflammatories (NSAID); Z90.710 Acquired absence of both cervix and uterus; Z82.49 Family history of ischemic heart disease and other diseases of the circulatory system
CPT/HCPCS: 36415; 43239; 74176; 74177; 80048; 80053; 82270; 83605; 83690; 83735; 83880; 84484; 85007; 85025; 85027; 85048; 87040; 87045; 87426; 87427; 87493; 93005; 96365; 96375; 99291; G0378; J2003; J2250; J2405; J2470; J3490

== ENCOUNTER 2025-03-09 16:22 | Inpatient (IN) | payer BC ==
[~2025-03-09] VITALS: Ht 165.1 cm; Wt 68.2 kg
[~2025-03-09 16:22] MED LIST changes: -ALPR1TAB7 PO; -CEPH250C PO; -IBUP-1455 PO; -LEVO500T91 PO; +LOPE1TAB9 PO; -METR-344 PO; -NITR0.4S29 SL; +NYS5LQ MT; +PANT40T PO; -ZOFR4T PO
--- NOTE | 2025-03-09 16:54 | ED.PDOC ---
History of Present Illness HPI Comments 74-year-old female brought in by EMS presents with a chief complaint of abdominal pain with associated nausea and vomiting. Patient states that her pain is localized to her diffuse abdomen, nonradiating, describes as aching, and rates her pain a 7/10. Patient states that the last time this happened was month s ago and she was admitted for an EEG and was diagnosed with duodenitis. Chief Complaint: Abdominal Pain Time Seen by MD: 16:44 Primary Care Provider: PRITI Robles Notes: Medications, Allergies Allergies: Coded Allergies: NO KNOWN ALLERGIES (Unverified , 08/09/22) Home Meds Active Scripts Loperamide HCl (Loperamide HCl) 2 Mg Tab, 2 MG PO Q8HPRN PRN, #10 TAB Prov:SERGIO ARSHAD MD 12/07/24 Nystatin (Mouth-Throat) (Mycostatin (Mouth-Throat)) 500,000 Units/5 Ml Ss, 5 ML MT TID for 10 Days, #200 ML Prov:SERGIO ARSHAD MD 12/07/24 Pantoprazole Sodium Sesquihydr (Pantoprazole Sodium) 40 Mg Tab, 40 MG PO BID, #60 TAB Prov:SERGIO ARSHAD MD 12/07/24 Reported Medications Metformin Hydrochloride (Metformin Hcl) 500 Mg Tab, 1000 MG PO BID for 30 Days, MG 12/05/24 Benazepril Hcl (Benazepril Hcl) 40 Mg Tab, 40 MG PO DAILY, MG 08/11/20 Atenolol (Atenolol) 25 Mg Tab, 25 MG PO DAILY, MG 08/11/20 Information Source: Patient Mode of Arrival: EMS Severity: Moderate Timing: Days Duration: Since onset Prehospital treatment: None Past Medical History PAST MEDICAL HISTORY: Arthritis, DM, High Lipids, HTN Surgical History: BTL, Hysterectomy 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: No Pertinent 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 Family History Family History: Family hx of DM Social History Smoker: Non-Smoker Alcohol: Denies ETOH Use Drugs: Denies Drug Use Lives In: Home Constitutional: denies: chills, diaphoresis, fatigue, fever, malaise, sweats, weakness, others EENTM: denies: blurred vision, double vision, ear bleeding, ear discharge, ear drainage, ear pain, ear ringing, eye pain, eye redness, hearing loss, mouth pain, mouth swelling, nasal discharge, nose bleeding, nose congestion, nose pain, photophobia, tearing, throat pain, throat swelling, voice changes, others Respiratory: denies: cough, hemoptysis, orthopnea, SOB at rest, shortness of breath, SOB with excertion, stridor, wheezing, others Cardiovascular: denies: chest pain, dizzy spells, diaphoresis, Dyspnea on exertion, edema, irregular heart beat, left arm pain, lightheadedness, palpitations, PND, syncope, others Gastrointestinal: reports: abdominal pain, nausea, vomiting; denies: abdomen distended, blood streaked bowels, constipated, diarrhea, dysphagia, difficulty swallowing, hematemesis, melena, poor appetite, poor fluid intake, rectal bleeding, rectal pain, others Genitourinary: denies: abnormal vagina bleeding, burning, dyspareunia, dysuria, flank pain, frequency, hematuria, incontinence, pain, , vagina discharge, urgency, others Neurological: denies: dizziness, fainting, headache, left sided numbness, left sided weakness, numbness, paresthesia, pre-existing deficit, right sided numbness, right sided weakness, seizure, speech problems, tingling, tremors, weakness, others Musculoskeletal: denies: back pain, gout, joint pain, joint swelling, muscle pain, muscle stiffness, neck pain, others Integumetry: denies: bruises, change in color, change in hair/nails, dryness, laceration, lesions, lumps, rash, wounds, others Allergic/Immunocompromised: denies: Difficulty Healing, Frequent Infections, Hives, Itching, others Hematologic/Lymphatic: denies: anemia, blood clots, easy bleeding, easy bruising, swollen glands, others Endocrine: denies: excessive hunger, excessive sweating, excessive thirst, excessive urination, flushing, intolerance to cold, intolerance to heat, unexplained weight gain, unexplained weight loss, others Psychiatric: denies: anxiety, bipolar disorder, depression, hopeless, panic disorder, schizophrenia, sleepless, suicidal, others All Other Systems: Reviewed and Negative Physical Exam General Appearance: No Apparent Distress, Normal HEENT: Normal ENT Inspection, Pharynx Normal, TMs Normal Neck: Full Range of Motion, Non-Tender, Normal, Normal Inspection Respiratory: Chest Non-Tender, Lungs Clear, No Accessory Muscle Use, No Respiratory Distress, Normal Breath Sounds Cardiovascular: No Edema, No JVD, No Murmur, No Gallop, Normal Peripheral Pulses, Regular Rate/Rhythm Breast Exam: Deferred Gastrointestinal: No Organomegaly, Non Tender, No Pulsatile Mass, Normal Bowel Sounds, Soft Genitalia: Deferred Pelvic: Deferred Rectal: Deferred Extremities: No calf tenderness, Normal capillary refill, Normal inspection, Normal range of motion, Non-tender, No pedal edema Musculoskeletal : Apperance: Normal Neurologic: Alert, community relations manager II-XII nml as Tested, No Motor Deficits, Normal Affect, Normal Mood, No Sensory Deficits Cerebellar Function: Normal Reflexes: Normal Skin: Dry, Normal Color, Warm Lymphatic: No Adenopathy Was a procedure done? Was a procedure done?: No Differential Dx Considerations may include: Differential diagnosis include GERD, gastritis, pancreatitis, biliary colic, functional dyspepsia. The workup shows that patient does have sludge in the gallbladder and a UTI however acalculous cholecystitis can not be excluded. I will start her on antibiotics patient will be admitted for further evaluation and treatment X-Ray, Labs, Meds, VS Vital Signs Date Time Temp Pulse Resp B/P (MAP) Pulse Ox O2 Delivery O2 Flow Rate FiO2 03/09/25 18:25 146/72 03/09/25 16:25 98.2 82 18 153/81 98 98.2 Lab Test 03/09/25 18:10 03/09/25 17:54 Range/Units Urine Color Colorless Yellow Urine Clarity Clear Clear Urine pH 5.5 5.0-9.0 Urine Specific [place] 1.017 1.001-1.035 Urine Protein Negative Negative Urine Ketones 3+ H Negative Urine Blood Negative Negative /uL Urine Nitrite Negative Negative Urine Bilirubin Negative Negative Urine Urobilinogen Normal Negative mg/dL Urine Leukocyte Esterase 2+ Negative /uL Urine RBC 4 0 - 4 /hpf Urine Microscopic WBC 9 H 0-5 /HPF Urine Squamous Epithelial Cells Few <5 /hpf Urine Bacteria None seen None Seen /hpf Urine Glucose 4+ H Normal mg/dL White Blood Count 14.5 H 4.4-10.8 10^3/uL Red Blood Count 5.10 4.0-5.20 10^6/uL Hemoglobin 15.2 12.2-16.2 g/dL Hematocrit 45.5 36.0-46.0 % Mean Corpuscular Volume 89.1 80.0-100.0 fL Mean Corpuscular Hemoglobin 29.8 28.0-32.0 pg Mean Corpuscular Hemoglobin Concent 33.4 32.0-36.0 g/dL Red Cell Distribution Width 14.7 H 11.8-14.3 % Platelet Count 424 140-450 10^3/uL Mean Platelet Volume 7.3 6.9-10.8 fL Neutrophils (%) (Auto) 93.3 H 37.0-80.0 % Lymphocytes (%) (Auto) 4.9 L 10.0-50.0 % Monocytes (%) (Auto) 1.5 0.0-12.0 % Eosinophils (%) (Auto) 0.0 0.0-7.0 % Basophils (%) (Auto) 0.3 0.0-2.0 % Neutrophils # (Auto) 13.5 H 1.6-8.6 10 ^3/uL Lymphocytes # (Auto) 0.7 0.4-5.4 10 ^3/uL Monocytes # (Auto) 0.2 0-1.3 10 ^3/uL Eosinophils # (Auto) 0 0-0.8 10 ^3/uL Basophils # (Auto) 0 0-0.2 10 ^3/uL Nucleated Red Blood Cells 0.1 % Sodium Level 135 L 136-145 mmol/L Potassium Level 3.7 3.5-5.1 mmol/L Chloride Level 98 98-107 mmol/L Carbon Dioxide Level 16 L 20-31 mmol/L Anion Gap 21 H 5-15 Blood Urea Nitrogen 10 9-23 mg/dL Creatinine 1.16 H 0.550-1.02 mg/dL Glomerular Filtration Rate Calc 49 >90 mL/min BUN/Creatinine Ratio 8.6 L 10.0-20.0 Serum Glucose 159 H 74-106 mg/dL Calcium Level 10.6 H 8.7-10.4 mg/dL Total Bilirubin 0.8 0.2-1.0 mg/dL Aspartate Amino Transferase (AST) 17 13-40 U/L Alanine Aminotransferase (ALT) 11 7-40 U/L Alkaline Phosphatase 64 46-116 U/L Total Protein 8.7 H 5.7-8.2 g/dL Albumin 5.8 H 3.2-4.8 g/dL Lipase 44 12-53 U/L Current Medications Medications (Trade) Dose Ordered Sig/Jose Angel Route Start Time Stop Time Status Last Admin Ondansetron HCl (Zofran) 4 mg ONCE ONCE IV 03/09/25 17:00 03/09/25 17:01 DC 03/09/25 18:18 Al Hydrox/Mg Hydrox/Simethicone (Maalox Plus) 30 ml ONCE ONCE PO 03/09/25 18:15 03/09/25 18:16 DC 03/09/25 18:13 Lidocaine HCl (Xylocaine 2% Viscous) 15 ml ONCE ONCE PO 03/09/25 18:15 03/09/25 18:16 DC 03/09/25 18:24 Time of 1ST Reevaluation: 17:14 Reevaluation 1ST: Unchanged Time of 2ND Reevaluation: 18:49 Reevaluation 2ND: Improved Patient Education/Counseling: Diagnosis, Treatment, Need For Follow Up Family Education/Counseling: Diagnosis, Treatment, Need For Follow Up SEPSIS Sepsis Screen Date sepsis recognized/suspect: Mar 09, 2025 Time Sepsis recognized/suspect: 1624 Recent Procedure: No On Antibiotic Therapy: No Respiratory Rate >20: No Heart Rate >90: No Temp<36 C (96.8 F) or >38.3 C: No SBP <90 or MAP <65 mmHG: No New Acute Mental Status Change: No Is the patient on CPAP, BIPAP,: No Physician Orders Gallbladder (03/09/25 16:47) Fentanyl Citrate Injection (03/09/25 18:00) Vital Signs Date Time Temp Pulse Resp B/P (MAP) Pulse Ox O2 Delivery O2 Flow Rate FiO2 03/09/25 18:25 146/72 03/09/25 16:25 98.2 82 18 153/81 98 98.2 Laboratory Tests Test 03/09/25 17:54 White Blood Count 14.5 10^3/uL (4.4-10.8) H Medications Medications Dose Ordered Sig/Jose Angel Route Start Time Stop Time Status Last Admin Dose Admin Al Hydrox/Mg Hydrox/Simethicone 30 ml ONCE ONCE PO 03/09/25 18:15 03/09/25 18:16 DC 03/09/25 18:13 Fentanyl Citrate 100 mcg STK-MED ONCE .ROUTE 03/09/25 18:19 03/09/25 18:16 DC 03/09/25 18:25 Lidocaine HCl 15 ml ONCE ONCE PO 03/09/25 18:15 03/09/25 18:16 DC 03/09/25 18:24 Ondansetron HCl 4 mg ONCE ONCE IV 03/09/25 17:00 03/09/25 17:01 DC 03/09/25 18:18 Departure 1 Departure Time of Disposition: 18:48 Impression: Primary Impression: Biliary colic Additional Impressions: Biliary sludge Acalculous cholecystitis UTI (urinary tract infection) Qualified Codes: N30.00 - Acute cystitis without hematuria Disposition: LEFT AWOL/ELOPED Admit to: Tele Condition: Serious Critical Care Note Critical Care Time?: Yes (45 min-critical care time only) Critical care comment: Due to concerns for patients condition deteriorating, the care required my highest level of attention and readiness to intervene. I assessed the patient, reviewed the medical records, ordered the appropriate tests and treatments, then reassessed for results and responsiveness. I communicated with medical personnel and consultants and formulated a plan of care. Total critical care time excludes any procedures Stability Stability form required: No Heart Score Heart Score: Heart Score Response (Comments) Value History N/A 0 EKG N/A 0 Age N/A 0 Risk Factors N/A 0 Troponin N/A 0 Total 0 I personally scribed for CODI RIZZO MD ([email or web address]) on 03/09/25 at 16:54. Electronically submitted by Han Sagastume ([email or web address]). CODI RIZZO MD Mar 09, 2025 16:54
[2025-03-09] MEDS ORDERED: MAALOX PLUS or MAALOX 30 ML PO ONE (17:00)
--- NOTE | 2025-03-09 17:47 | DVH ---
Procedure: US GALLBLADDER Study Date and Requested Time: 03/09/2025 04:59 PM History: EPIGASTRIC PAIN Comparison: CT abdomen and pelvis 12/06/2024 Technique: Multiple high resolution chiang-scale images obtained of the right upper quadrant of the abd omen with color Doppler for evaluation of blood flow and vascularity as indicated. Findings: Liver normal in size, measuring 14.6 cm in length, with increased echogenicity and normal contours. N o evidence of focal hepatic lesions, intrahepatic or extrahepatic ductal dilatation. Common bile duct measures 0.3 cm in diameter. Sludge is noted within the gallbladder neck. No cholelithiasis. No gallbladder wall thickening or p ericholecystic free fluid. Positive sonographic Bush's sign. Pancreatic tail is obscured by bowel gas. Otherwise, the pancreas Right kidney measures is unremarkable. 10 cm in length, with normal contours, echotexture, and cortic al thickness. No evidence of hydronephrosis, calculi, cystic or solid renal lesions. Partially visualized inferior vena cava unremarkable. Impression: Sludge within the gallbladder with positive sonographic bush's sign. No gallstones. Acalculus cho lecystitis can not be excluded. Pancreatic tail is partially obscured by bowel gas. Otherwise, pancreas is unremarkable. Mild hepatic steatosis.
[2025-03-09 18:11] LABS: Hematocrit 45.5 % (36.0-46.0); Hemoglobin 15.2 g/dL (12.2-16.2); Mean Corpuscular Hemoglobin 29.8 pg (28.0-32.0); Mean Corpuscular Volume 89.1 fL (80.0-100.0); Nucleated Red Blood Cells % 0.1 %
[2025-03-09] MEDS: MAALOX PLUS or MAALOX 30 ML PO ONE (18:13)
[2025-03-09] MEDS: ONDANSETRON HCL 4 MG/2 ML VIAL IV ONE (18:18)
[2025-03-09 18:23] LABS: Urine Protein, UAD Negative (Negative)
[2025-03-09] MEDS: LIDOCAINE VISCOUS 2% 15ML UD PO ONE (18:24)
[2025-03-09 18:25] LABS: Alanine Aminotransferase 11 U/L (7-40); Alkaline Phosphatase 64 U/L (46-116); Anion Gap 21 (5-15); BUN/Creatinine Ratio 8.6 (10.0-20.0); Bilirubin, Total 0.8 mg/dL (0.2-1.0); Blood Urea Nitrogen 10 mg/dL (9-23); Lipase 44 U/L (12-53); Potassium 3.7 mmol/L (3.5-5.1)
[2025-03-09] MEDS: fentaNYL CITRATE 100 MCG/2 ML VL ONE (18:25)
[2025-03-09 18:30] LABS: Albumin 5.8 g/dL (3.2-4.8); Calcium 10.6 mg/dL (8.7-10.4); Carbon Dioxide 16 mmol/L (20-31); Chloride 98 mmol/L (98-107); Glucose 159 mg/dL (74-106); Sodium 135 mmol/L (136-145); Total Protein 8.7 g/dL (5.7-8.2)
[2025-03-09] MEDS: fentaNYL CITRATE 100 MCG/2 ML VL IV ONE (19:39)
[2025-03-09] MEDS: PIPERACILLIN-TAZO 4.5GM 100 ML IV ONE (19:44)
[2025-03-09 19:48] VITALS: PULSE 71; RESP 22; O2SAT 96
[2025-03-09] MEDS: MORPHINE SULFATE 4 MG/ML SYR/VIAL IV ONE (21:00)
[2025-03-09] MEDS ORDERED: NITROGLYCERIN 0.4 MG SL TAB SL PRN (21:45)
[2025-03-09] MEDS ORDERED: MORPHINE SULFATE INJ 2 MG/ml SYRG IV PRN (21:45)
[2025-03-09] MEDS ORDERED: hydrALAZINE HCL 20 MG/ML VL IV PRN (21:45)
[2025-03-09] MEDS ORDERED: ACETAMINOPHEN 325 MG TAB PO PRN (21:45)
[2025-03-09] MEDS: SODIUM CHLORIDE 0.9% 1,000 ML IV SCH (22:20)
[2025-03-09] MEDS: PIPERACILLIN-TAZOB 3.375GM 100 ML IV SCH (22:20)
[2025-03-09] MEDS: ONDANSETRON HCL 4 MG/2 ML VIAL IV PRN (22:34)
[2025-03-09 23:04] VITALS: BP 121/59; PULSE 73; RESP 18; TEMP 97.9; O2SAT 98
[2025-03-09] MEDS ORDERED: EMPA1TAB PO (23:44)
[2025-03-10] VITALS (7 sets, daily range): BP systolic 115–134; BP diastolic 59–78; PULSE 67–81; RESP 16–18; TEMP 97.5–99.5; O2SAT 95–98
[2025-03-10] MEDS: MORPHINE SULFATE INJ 2 MG/ml SYRG IV PRN (01:27)
[2025-03-10] MEDS ORDERED: DEXTROSE (50%) 50ML SYRG IV PRN (02:15)
--- NOTE | 2025-03-10 02:20 | DVHHP2 ---
DAVID SMALL SHARED SERVICES REPRESENTATIVE 03/10/25 0220: History of Present Illness Reason for Visit: Abdominal pain History of Present Illness 74-year-old female presents with complaints of abdominal pain, nausea, vomiting x3 days. Pain is diffuse in the abdomen 01/27. Patient endorses she has not been able to tolerate oral intake. Also endorses she has followed up with gastroenterology. Previously had an EGD found to have duodenitis. During the emergency department evaluation W14.5. BUN 10, creatinine 1.06. LFTs within normal range. UA positive leukocyte esterase. Abdominal ultrasound can not rule out acalculous cholecystitis. At this time patient denies fevers, chills, dizziness, shortness of breath, chest pain, palpitations, leg swelling, hematemesis, hematochezia, melena Cardiovascular: HTN Endocrine: Diabetes Smoke: No ALCOHOL: none Drugs: None Lives: with Family Review of Systems Constitutional: No: Fever, Chills, Sweats, Weakness, Malaise, Other Eyes: No: Pain, Vision change, Conjunctivae inflammation, Eyelid inflammation, Other, Redness ENT: No: Ear pain, Ear discharge, Nose pain, Nose discharge, Nose congestion, Mouth pain, Mouth swelling, Throat pain, Throat swelling, Other Respiratory: No: Cough, Dry, Shortness of breath, SOB with excertion, Wheezing, Hemoptysis, Pleuritic Pain, Sputum, Wheezing, Other Cardiovascular: No: Chest Pain, Palpitations, Orthopnea, Paroxysmal Noc. Dyspnea, Edema, Lt Headedness, Other Gastrointestinal: Nausea, Vomiting, Abdominal Pain; No: Diarrhea, Constipation, Melena, Hematochezia, Other Genitourinary: No Dysuria, No Frequency, No Incontinence, No Hematuria, No Retention, No Other Musculoskeletal: No: other, neck pain, shoulder pain, arm pain, back pain, hand pain, leg pain, foot pain Skin: No: Rash, Lesions, Jaundice, Bruising, Other Neurological: No: Weakness, Numbness, Incoordination, Change in speech, Confusion, Seizures, Other Allergies: Coded Allergies: NO KNOWN ALLERGIES (Unverified , 08/09/22) Medications Current Medications Medications Dose Ordered Sig/Jose Angel Route Start Time Stop Time Status Last Admin Dose Admin Sodium Chloride 1,000 ml @ 75 mls/hr [id number] IV 03/09/25 21:45 03/10/25 01:26 75 MLS/HR Acetaminophen 650 mg Q6HP PRN PO 03/09/25 21:45 Acetaminophen/ Hydrocodone Bitart 1 tab Q4HP PRN PO 03/09/25 21:45 Ondansetron HCl 4 mg Q4HP PRN IV 03/09/25 21:45 03/09/25 22:34 4 MG Morphine Sulfate 2 mg Q4HPRN PRN IV 03/09/25 21:45 03/10/25 01:27 2 MG Enoxaparin Sodium 40 mg DAILY SC 03/10/25 10:00 Nitroglycerin 0.4 mg Q5MINP PRN SL 03/09/25 21:45 Morphine Sulfate 2 mg Q30M PRN IV 03/09/25 21:45 Piperacillin Sod/ Tazobactam Sod 100 ml @ 100 mls/hr TID IV 03/09/25 22:00 03/09/25 22:20 100 MLS/HR Hydralazine HCl 10 mg Q4HPRN PRN IV 03/09/25 21:45 Pantoprazole Sodium 40 mg DAILY IV 03/10/25 10:00 Exam Vital Signs Vital Signs Date Time Temp Pulse Resp B/P (MAP) Pulse Ox O2 Delivery O2 Flow Rate FiO2 03/10/25 01:27 73 18 121/59 03/10/25 01:00 97.9 98 97.9 03/09/25 19:48 Room Air* 0 21 General Appearance: Alert, Oriented X3, Cooperative HEENT: Atraumatic, PERRLA Respiratory: Clear to auscultation, Normal air movement Cardiovascular: Regular rate, Normal S1, Normal S2 Abdominal: Normal bowel sounds, Soft Extremities: No cyanosis, No edema Skin: No rashes Neuro: Normal speech, Strength at 5/5 X4 ext Psych/Mental Status: Mental status NL, Mood NL Labs/Xrays Labs Test 03/09/25 18:10 03/09/25 17:54 Range/Units Urine Color Colorless Yellow Urine Clarity Clear Clear Urine pH 5.5 5.0-9.0 Urine Specific [place] 1.017 1.001-1.035 Urine Protein Negative Negative Urine Ketones 3+ H Negative Urine Blood Negative Negative /uL Urine Nitrite Negative Negative Urine Bilirubin Negative Negative Urine Urobilinogen Normal Negative mg/dL Urine Leukocyte Esterase 2+ Negative /uL Urine RBC 4 0 - 4 /hpf Urine Microscopic WBC 9 H 0-5 /HPF Urine Squamous Epithelial Cells Few <5 /hpf Urine Bacteria None seen None Seen /hpf Urine Glucose 4+ H Normal mg/dL White Blood Count 14.5 H 4.4-10.8 10^3/uL Red Blood Count 5.10 4.0-5.20 10^6/uL Hemoglobin 15.2 12.2-16.2 g/dL Hematocrit 45.5 36.0-46.0 % Mean Corpuscular Volume 89.1 80.0-100.0 fL Mean Corpuscular Hemoglobin 29.8 28.0-32.0 pg Mean Corpuscular Hemoglobin Concent 33.4 32.0-36.0 g/dL Red Cell Distribution Width 14.7 H 11.8-14.3 % Platelet Count 424 140-450 10^3/uL Mean Platelet Volume 7.3 6.9-10.8 fL Neutrophils (%) (Auto) 93.3 H 37.0-80.0 % Lymphocytes (%) (Auto) 4.9 L 10.0-50.0 % Monocytes (%) (Auto) 1.5 0.0-12.0 % Eosinophils (%) (Auto) 0.0 0.0-7.0 % Basophils (%) (Auto) 0.3 0.0-2.0 % Neutrophils # (Auto) 13.5 H 1.6-8.6 10 ^3/uL Lymphocytes # (Auto) 0.7 0.4-5.4 10 ^3/uL Monocytes # (Auto) 0.2 0-1.3 10 ^3/uL Eosinophils # (Auto) 0 0-0.8 10 ^3/uL Basophils # (Auto) 0 0-0.2 10 ^3/uL Nucleated Red Blood Cells 0.1 % Sodium Level 135 L 136-145 mmol/L Potassium Level 3.7 3.5-5.1 mmol/L Chloride Level 98 98-107 mmol/L Carbon Dioxide Level 16 L 20-31 mmol/L Anion Gap 21 H 5-15 Blood Urea Nitrogen 10 9-23 mg/dL Creatinine 1.16 H 0.550-1.02 mg/dL Glomerular Filtration Rate Calc 49 >90 mL/min BUN/Creatinine Ratio 8.6 L 10.0-20.0 Serum Glucose 159 H 74-106 mg/dL Calcium Level 10.6 H 8.7-10.4 mg/dL Total Bilirubin 0.8 0.2-1.0 mg/dL Aspartate Amino Transferase (AST) 17 13-40 U/L Alanine Aminotransferase (ALT) 11 7-40 U/L Alkaline Phosphatase 64 46-116 U/L Total Protein 8.7 H 5.7-8.2 g/dL Albumin 5.8 H 3.2-4.8 g/dL Lipase 44 12-53 U/L SEPSIS Sepsis Screen Date sepsis recognized/suspect: Mar 09, 2025 Time Sepsis recognized/suspect: 2100 Recent Procedure: No On Antibiotic Therapy: No Respiratory Rate >20: No Heart Rate >90: No Temp<36 C (96.8 F) or >38.3 C: No SBP <90 or MAP <65 mmHG: No New Acute Mental Status Change: No Is the patient on CPAP, BIPAP,: No Physician Orders Admit (03/09/25:35) Code Status (03/09/25:) Vital Signs .PER UNIT PROTOCOL (03/09/25:35) Review Orders With Adm.Md (03/09/25:35) Sodium Chloride 0.9% (03/09/25 21:45) Acetaminophen Tablet (Tylenol Tablet) (03/09/25 21:45) Notify Md Of Changes From Base (03/09/25:35) Advance Directive (03/09/25:35) Basic Metabolic Panel (03/10/25 05:00) Basic Metabolic Panel (03/11/25 05:00) Basic Metabolic Panel (03/12/25 05:00) Basic Metabolic Panel (03/13/25 05:00) Basic Metabolic Panel (03/14/25 05:00) Complete Blood Count (03/10/25 05:00) Complete Blood Count (03/11/25 05:00) Complete Blood Count (03/12/25 05:00) Complete Blood Count (03/13/25 05:00) Complete Blood Count (03/14/25 05:00) Blood Culture (03/09/25:35) Urine Bacterial Culture (03/09/25:) Patient Condition (03/09/25:) Allergies (8/20/25 21:35) Hydrocodone-Acet 5/325mg Tab ([place] 5/32 (03/09/25 21:45) Ondansetron Hcl (Zofran) (03/09/25 21:45) Morphine Sulfate Injection (03/09/25 21:45) Enoxaparin Sodium (Lovenox) (03/10/25 10:00) Nitroglycerin Sublingual (Ntrostat Subli (03/09/25 21:45) Morphine Sulfate Injection (03/09/25 21:45) Stat Ekg For Chest Pain (03/09/25 21:35) Notify Md Of Changes From Base (03/09/25 21:35) [employer] Sales Manager For 24 Hours (03/09/25 21:35) Emergency Dysrhythmia Protocol (03/09/25 21:35) Rhythm Strips Once Every Shift (03/09/25 21:35) Oxygen By Nasal Cannula (03/09/25 21:35) Piperacillin-Tazob 3.375gm (Zosyn 3.375g (03/09/25 22:00) Nm Hida Scan (03/09/25 21:35) * Surgical Consult (03/09/25 ) Npo Except For Medications (03/09/25 21:35) Hydralazine Injection (Apresoline Inject (03/09/25 21:45) Pantoprazole (Protonix) (03/10/25 10:00) Vital Signs Date Time Temp Pulse Resp B/P (MAP) Pulse Ox O2 Delivery O2 Flow Rate FiO2 03/10/25 01:27 73 18 121/59 03/10/25 01:00 97.9 73 18 121/59 (79) 98 97.9 03/09/25 22:33 98.2 88 20 137/67 (90) 99 98.2 03/09/25 21:01 98.0 76 16 164/72 (102) 98 98.0 03/09/25 21:00 79 22 164/72 03/09/25 19:48 71 22 96 Room Air* 0 21 03/09/25 18:35 97.2 85 18 146/72 (96) 98 97.2 03/09/25 18:25 146/72 Laboratory Tests Test 03/09/25 17:54 White Blood Count 14.5 10^3/uL (4.4-10.8) H Medications Medications Dose Ordered Sig/Jose Angel Route Start Time Stop Time Status Last Admin Dose Admin Al Hydrox/Mg Hydrox/Simethicone 30 ml ONCE ONCE PO 03/09/25 18:15 03/09/25 18:16 DC 03/09/25 18:13 30 ML Fentanyl Citrate 100 mcg STK-MED ONCE .ROUTE 03/09/25 18:19 03/09/25 18:16 DC 03/09/25 18:25 100 MCG Lidocaine HCl 15 ml ONCE ONCE PO 03/09/25 18:15 03/09/25 18:16 DC 03/09/25 18:24 15 ML Metronidazole 100 ml @ 100 mls/hr ONCE ONCE IV 03/09/25 19:00 03/09/25 19:59 DC 03/09/25 19:45 100 MLS/HR Morphine Sulfate 2 mg Q4HPRN PRN IV 03/09/25 21:45 03/10/25 01:27 2 MG Morphine Sulfate 4 mg ONCE ONCE IV 03/09/25 20:45 03/09/25 20:46 DC 03/09/25 21:00 4 MG Ondansetron HCl 4 mg ONCE ONCE IV 03/09/25 17:00 03/09/25 17:01 DC 03/09/25 18:18 4 MG Ondansetron HCl 4 mg Q4HP PRN IV 03/09/25 21:45 03/09/25 22:34 4 MG Piperacillin Sod/ Tazobactam Sod 100 ml @ 100 mls/hr ONCE ONCE IV 03/09/25 19:00 03/09/25 19:59 DC 03/09/25 19:44 100 MLS/HR Piperacillin Sod/ Tazobactam Sod 100 ml @ 100 mls/hr TID IV 03/09/25 22:00 03/09/25 22:20 100 MLS/HR Sodium Chloride 1,000 ml @ 75 mls/hr [id number] IV 03/09/25 21:45 03/10/25 01:26 75 MLS/HR Assessment/Plan Assessment/Plan Abdominal pain, R/O acalculous cholecystitis Acute UTI Leukocytosis Metabolic acidosis DM with hyperglycemia Hypertension Plan Admit medical floor Consult general surgeon. HIDA scan. NPO diet IVF, IV ABX Monitor BMP, CBC Blood cultures pending. Urine cultures pending Blood glucose checks with regular insulin sliding scale coverage. Continue home medications. As needed antihypertensives. GI PPX Protonix. DVT PPX Lovenox SQ Plan discussed with: Patient My Orders Orders - DAVID SMALL NP Procedure Category Date Status Time Admit ADMIT 03/09/25 Transmitted 21:35 Code Status CODE 03/09/25 Transmitted 21:35 Vital Signs YASMEEN 03/09/25 In Process 21:35 Review Orders With YASMEEN 03/09/25 In Process Adm. 21:35 Sodium Chloride 0.9% PHA 03/09/25 In Process 21:45 Acetaminophen Tablet PHA 03/09/25 In Process (Tylenol Tablet) 21:45 Notify Of Changes YASMEEN 03/09/25 In Process From Base 21:35 Advance Directive YASMEEN 03/09/25 In Process 21:35 Basic Metabolic Panel LAB 03/10/25 Logged 05:00 Basic Metabolic Panel LAB 03/11/25 Verified 05:00 Basic Metabolic Panel LAB 03/12/25 Verified 05:00 Basic Metabolic Panel LAB 03/13/25 Verified 05:00 Basic Metabolic Panel LAB 03/14/25 Verified 05:00 Complete Blood Count LAB 03/10/25 Logged 05:00 Complete Blood Count LAB 03/11/25 Verified 05:00 Complete Blood Count LAB 03/12/25 Verified 05:00 Complete Blood Count LAB 03/13/25 Verified 05:00 Complete Blood Count LAB 03/14/25 Verified 05:00 Blood Culture CORNELIUS 03/09/25 In Process 21:35 Urine Bacterial CORNELIUS 03/09/25 Logged Culture 21:35 Patient Condition ORDERS 03/09/25 Transmitted 21:35 Allergies YASMEEN 03/09/25 In Process 21:35 Hydrocodone-Acet PHA 03/09/25 In Process 5/325mg Tab ([place] 21:45 Ondansetron Hcl PHA 03/09/25 In Process (Zofran) 21:45 Morphine Sulfate PHA 03/09/25 In Process Injection 21:45 Enoxaparin Sodium PHA 03/10/25 In Process (Lovenox) 10:00 Nitroglycerin PHA 03/09/25 In Process Sublingual (Ntrostat 21:45 Morphine Sulfate PHA 03/09/25 In Process Injection 21:45 Stat Ekg For Chest YASMEEN 03/09/25 In Process Pain 21:35 Notify Of Changes YASMEEN 03/09/25 In Process From Base 21:35 [employer] Sales Manager For YASMEEN 03/09/25 In Process 24 Hours 21:35 Emergency Dysrhythmia YASMEEN 03/09/25 In Process Protocol 21:35 Rhythm Strips Once YASMEEN 03/09/25 In Process Every Shift 21:35 Oxygen By Nasal RT 03/09/25 Transmitted Cannula 21:35 Piperacillin-Tazob PHA 03/09/25 In Process 3.375gm (Zosyn 3.375g 22:00 Nm Hida Scan NM 03/09/25 Logged 21:35 * Surgical Consult CONS 03/09/25 Transmitted Npo Except For YASMEEN 03/09/25 In Process Medications 21:35 Hydralazine Injection PHA 03/09/25 In Process (Apresoline Inject 21:45 Pantoprazole PHA 03/10/25 In Process (Protonix) 10:00 Date of Service: Mar 10, 2025 Billing Provider: SERGIO ARSHAD MD Common Visit Codes: NOT BILLABLE SERGIO ARSHAD MD 03/10/25 1241: Review of Systems Allergies: Coded Allergies: NO KNOWN ALLERGIES (Unverified , 08/09/22) Additional Comments Additional Comments Additional Comments Patient's chart is reviewed and discussed with the nurse practitioner. Patient is seen evaluated and admitted by nurse practitioner. I agree with his evaluation, documentation, assessment and care plan as outlined.Patient is seen evaluated by me earlier today. DAVID SMALL SHARED SERVICES REPRESENTATIVE Mar 10, 2025 02:20 SERGIO ARSHAD MD Mar 10, 2025 12:41
[2025-03-10] MEDS: InsuLIN REG 1unit/0.01ml Soln (100units/ml) SC SCH (06:00)
[2025-03-10] MEDS: ACCU-CHEK COMFORT CURVE STRIP VI SCH (06:13)
[2025-03-10 07:17] LABS: Anion Gap 15 (5-15); Calcium 9.7 mg/dL (8.7-10.4); Carbon Dioxide 23 mmol/L (20-31); Chloride 100 mmol/L (98-107); Potassium 3.6 mmol/L (3.5-5.1); Sodium 138 mmol/L (136-145)
[2025-03-10 07:23] LABS: BUN/Creatinine Ratio 13.2 (10.0-20.0); Blood Urea Nitrogen 15 mg/dL (9-23); Glucose 128 mg/dL (74-106)
[2025-03-10 07:25] LABS: Hematocrit 41.7 % (36.0-46.0); Hemoglobin 13.9 g/dL (12.2-16.2); Mean Corpuscular Hemoglobin 29.4 pg (28.0-32.0); Mean Corpuscular Volume 88.4 fL (80.0-100.0); Nucleated Red Blood Cells % 0.1 %
[2025-03-10] MEDS: PANTOPRAZOLE 40 MG/10 ML VIAL INJ IV SCH (10:01)
[2025-03-10] MEDS: ENOXAPARIN SOD 40 MG/0.4 ML SYRINGE SC SCH (10:02)
--- NOTE | 2025-03-10 13:06 | DVH ---
Procedure: NM NM HIDA SCAN Exam Date: 03/10/2025 11:29 AM Clinical History: cholecystitis r/o Comparison Study: 03/09/2025, 12/06/2024 Nuclear Medicine Hepatobiliary Scan. Technique: Following the intravenous administration of 6 mCi of technetium 99m labeled Choletec multiple planar abdominal planar images were obtained in anterior projection in 1 minute intervals for 41 minutes . R ight lateral images were obtained at 40 minutes after injection. Findings: The liver appears grossly normal in size. There is no abnormal persistence of the cardiac or blood po ol activity. Gallbladder is visualized at approximately 40 minutes Impression: Patent cystic duct.
[2025-03-10] MEDS: HYDROcodone-ACET 5/325MG TAB PO PRN (14:40)
[2025-03-10] MEDS: ATENOLOL 25 MG TAB PO SCH (21:13)
[2025-03-11 01:00] VITALS: BP 114/52; PULSE 61; RESP 17; TEMP 99; O2SAT 98
[2025-03-11 05:00] VITALS: BP_SYST 132; BP_SYST 153; BP_DIAS 74; BP_DIAS 77; PULSE 50; RESP 18; TEMP 97.8; O2SAT 98
[2025-03-11 06:55] LABS: Hematocrit 38.4 % (36.0-46.0); Hemoglobin 13.3 g/dL (12.2-16.2); Mean Corpuscular Hemoglobin 30.6 pg (28.0-32.0); Mean Corpuscular Volume 88.4 fL (80.0-100.0); Nucleated Red Blood Cells % 0.0 %
[2025-03-11 07:00] LABS: Calcium 9.2 mg/dL (8.7-10.4); Chloride 106 mmol/L (98-107); Sodium 139 mmol/L (136-145)
[2025-03-11 07:01] LABS: Anion Gap 12 (5-15); Carbon Dioxide 21 mmol/L (20-31)
[2025-03-11 07:02] LABS: Potassium 3.5 mmol/L (3.5-5.1)
[2025-03-11 07:06] LABS: BUN/Creatinine Ratio 8.3 (10.0-20.0)
[2025-03-11 07:10] LABS: Blood Urea Nitrogen 8 mg/dL (9-23); Glucose 134 mg/dL (74-106)
[2025-03-11 09:02] VITALS: BP 124/67; PULSE 55; RESP 20; TEMP 99.1; O2SAT 98
[2025-03-11 13:00] VITALS: BP 122/73; PULSE 50; RESP 18; TEMP 97.7; O2SAT 97
[2025-03-11] MEDS ORDERED: NYS5LQ MT (14:37)
[2025-03-11] MEDS ORDERED: NITR-52 PO (14:37)
[2025-03-11] MEDS ORDERED: PANT40T PO (14:37)
--- NOTE | 2025-03-11 14:39 | DVHDS2 ---
Discharge Summary Date of Admission Mar 09, 2025 at 21:35 Date of Discharge: Mar 11, 2025 Labs/Diagnostic Data: Laboratory Results Test 03/11/25 11:59 03/11/25 06:19 03/09/25 18:10 03/09/25 17:54 POC Glucose 148 mg/dl (70-106) White Blood Count 9.1 10^3/uL (4.4-10.8) Red Blood Count 4.35 10^6/uL (4.0-5.20) Hemoglobin 13.3 g/dL (12.2-16.2) Hematocrit 38.4 % (36.0-46.0) Mean Corpuscular Volume 88.4 fL (80.0-100.0) Mean Corpuscular Hemoglobin 30.6 pg (28.0-32.0) Mean Corpuscular Hemoglobin Concent 34.6 g/dL (32.0-36.0) Red Cell Distribution Width 14.4 % (11.8-14.3) Platelet Count 345 10^3/uL (140-450) Mean Platelet Volume 7.3 fL (6.9-10.8) Neutrophils (%) (Auto) 73.0 % (37.0-80.0) Lymphocytes (%) (Auto) 15.1 % (10.0-50.0) Monocytes (%) (Auto) 9.2 % (0.0-12.0) Eosinophils (%) (Auto) 1.8 % (0.0-7.0) Basophils (%) (Auto) 0.9 % (0.0-2.0) Neutrophils # (Auto) 6.7 10 ^3/uL (1.6-8.6) Lymphocytes # (Auto) 1.4 10 ^3/uL (0.4-5.4) Monocytes # (Auto) 0.8 10 ^3/uL (0-1.3) Eosinophils # (Auto) 0.2 10 ^3/uL (0-0.8) Basophils # (Auto) 0.1 10 ^3/uL (0-0.2) Nucleated Red Blood Cells 0.0 % Sodium Level 139 mmol/L (136-145) Potassium Level 3.5 mmol/L (3.5-5.1) Chloride Level 106 mmol/L (98-107) Carbon Dioxide Level 21 mmol/L (20-31) Anion Gap 12 (5-15) Blood Urea Nitrogen 8 mg/dL (9-23) Creatinine 0.96 mg/dL (0.550-1.02) Glomerular Filtration Rate Calc 62 mL/min (>90) BUN/Creatinine Ratio 8.3 (10.0-20.0) Serum Glucose 134 mg/dL (74-106) Calcium Level 9.2 mg/dL (8.7-10.4) Urine Color Colorless (Yellow) Urine Clarity Clear (Clear) Urine pH 5.5 (5.0-9.0) Urine Specific [place] 1.017 (1.001-1.035) Urine Protein Negative (Negative) Urine Ketones 3+ (Negative) Urine Blood Negative /uL (Negative) Urine Nitrite Negative (Negative) Urine Bilirubin Negative (Negative) Urine Urobilinogen Normal mg/dL (Negative) Urine Leukocyte Esterase 2+ /uL (Negative) Urine RBC 4 /hpf (0 - 4) Urine Microscopic WBC 9 /HPF (0-5) Urine Squamous Epithelial Cells Few /hpf (<5) Urine Bacteria None seen /hpf (None Seen) Urine Glucose 4+ mg/dL (Normal) Total Bilirubin 0.8 mg/dL (0.2-1.0) Aspartate Amino Transferase (AST) 17 U/L (13-40) Alanine Aminotransferase (ALT) 11 U/L (7-40) Alkaline Phosphatase 64 U/L (46-116) Total Protein 8.7 g/dL (5.7-8.2) Albumin 5.8 g/dL (3.2-4.8) Lipase 44 U/L (12-53) Other Laboratory Tests 03/11/25 06:19 Brief Hx & Hospital Course: 74-year-old female presents with complaints of abdominal pain, nausea, vomiting x3 days. Pain is diffuse in the abdomen 01/27. Patient endorses she has not been able to tolerate oral intake. Also endorses she has followed up with gastroenterology. Previously had an EGD found to have duodenitis. During the emergency department evaluation W14.5. BUN 10, creatinine 1.06. LFTs within normal range. UA positive leukocyte esterase. Abdominal ultrasound can not rule out acalculous cholecystitis. At this time patient denies fevers, chills, dizziness, shortness of breath, chest pain, palpitations, leg swelling, hematemesis, hematochezia, melena She is admitted and evaluated by general surgeon. Patient had a gallbladder ultrasound did not show any obvious gallstones. Patient had HIDA scan which is also normal without any cystic duct obstruction or acute cholecystitis. Therefore patient's diet is advanced which she is tolerating without pain. [place] her symptoms possibly related to history of esophagitis/gastritis for which she was admitted here few months back and had EGD. Patient apparently stop taking her nystatin and Protonix once she finished the course that was prescribed during her last admission. Patient also noted to have mild UTI for which she received empiric antibiotics. Overall patient's symptoms resolved and feeling better. Therefore it is felt she can be safely discharged home. I have advised the patient that she should continue her Protonix and nystatin given her recurrent symptoms. Have a close follow up with the PCP and night auditor. Meantime she is advised to finish the antibiotic as prescribed for UTI. Patient verbalized understanding of her hospital diagnosis, treatment she received, discharge medications, discharge instructions and agree with the discharge follow-up plan of care as outlined. Operations or Procedures Procedure: NM NM HIDA SCAN Exam Date: 03/10/2025 11:29 AM Clinical History: cholecystitis r/o Comparison Study: 03/09/2025, 12/06/2024 Nuclear Medicine Hepatobiliary Scan. Technique: Following the intravenous administration of 6 mCi of technetium 99m labeled Choletec multiple planar abdominal planar images were obtained in anterior projection in 1 minute intervals for 41 minutes . Right lateral images were obtained at 40 minutes after injection. Findings: The liver appears grossly normal in size. There is no abnormal persistence of the cardiac or blood pool activity. Gallbladder is visualized at approximately 40 minutes Impression: Patent cystic duct. Condition at Discharge: Stable Final Diagnosis/Problems List Acute on chronic gastritis/esophagitis, mild UTI Discharge Disposition: Home Discharge Instruct/Medications Diet: Consistent carbohydrate, Cardiac 2g Na,low cholest Activity: No Restrictions, As Tolerated Follow Up/Referral: Primary care physician next week and with Dr. Werner Ralph surgeon after two weeks as needed for any recurrent abdominal pain Medications: As prescribed and home medications per discharge med reconciliation list Scheduled Atenolol (Atenolol), 25 MG PO DAILY, (Reported) Benazepril Hcl (Benazepril Hcl), 40 MG PO DAILY, (Reported) Empagliflozin (Jardiance), 20 MG PO HS, (Reported) Metformin Hydrochloride (Metformin Hcl), 1,000 MG PO BID, (Reported) Nitrofurantoin (Nitrofurantoin), 1 CAP PO BID Nystatin (Mouth-Throat) (Mycostatin (Mouth-Throat)), 5 ML MT TID Pantoprazole Sodium Sesquihydr (Pantoprazole Sodium), 40 MG PO DAILY Scheduled PRN Loperamide HCl (Loperamide HCl), 2 MG PO Q8HPRN PRN Discharge Statement: "Patient was advised to return to the ER or call 911 if any headaches, dizziness, shortness of breath, chest pain, abdominal pain, bleeding, fevers, or worsening of medical condition. Patient was counseled about treatment plan, medications, possible side effects, patientverbalized understanding. All questions were answered to the best of my ability. This discharge took greater then 30 minutes in planning, reviewing documentation, counseling the patient, and discussing with other team members." ASSESSMENT ASSESSMENT Assessment Acute on chronic gastritis/esophagitis, mild UTI SERGIO ARSHAD MD Mar 11, 2025 14:39
[2025-03-11 16:43] VITALS: BP 116/64; PULSE 49; RESP 18; TEMP 98.8; O2SAT 97
== END 2025-03-11 18:35 | disposition home or self-care (01) | DRG 392 ==
LOC: EDBD 16:22 → ER 16:22 → OVERFLOW 21:35 → CENTRAL 22:40
PROVIDERS: ADMIT Hospitalist; ATTEND Hospitalist
DX: K29.00 Acute gastritis without bleeding (principal); E87.20 Acidosis, unspecified; N39.0 Urinary tract infection, site not specified; K20.90 Esophagitis, unspecified without bleeding; E11.65 Type 2 diabetes mellitus with hyperglycemia; I10 Essential (primary) hypertension; K29.50 Unspecified chronic gastritis without bleeding; Z90.710 Acquired absence of both cervix and uterus; Z83.3 Family history of diabetes mellitus; Z79.899 Other long term (current) drug therapy
CPT/HCPCS: 36415; 76705; 78226; 80048; 80053; 81001; 82962; 83690; 85025; 87040; 87086; 96365; 96375; 99291; G0378; J1815; J2405; J2470; J2543; J3490